=== PATIENT | female | born 1975 | race Caucasian/White ===

== ENCOUNTER 2022-12-15 14:14 | Outpatient (CLI) | payer OTHER, SELFPAY ==
[2022-12-15 16:20] LABS: Cholesterol* 218 mg/dL (90-199); HDL Cholesterol* 39 mg/dL (>=50); LDL Cholesterol Calculated 100 mg/dL (<100); Triglycerides* 394 mg/dL (40-149)
== END 2022-12-15 14:15 | disposition home or self-care (01) ==
LOC: NFLDREF 14:18
PROVIDERS: PCP Family Medicine; Visit Provider Family Medicine
DX: Z13.6 Encounter for screening for cardiovascular disorders (principal)
CPT/HCPCS: 80061

== ENCOUNTER 2023-07-11 14:02 | Emergency (ER) | payer OTHER, SELFPAY ==
[2023-07-11 14:10] VITALS: BP 150/105; PULSE 60; RESP 18; TEMP 36.2; O2SAT 97; BMI 33.9
--- NOTE | 2023-07-11 15:48 | ED.GENADULT ---
HPI - General Adult General Chief complaint: Shoulder Injury/Pain Stated complaint: Pain in both shoulders Time Seen by Provider: 07/11/23 15:20 History of Present Illness HPI narrative: This is a pleasant 47-year-old female who has a past medical history including chronic neck pain, previous cervical spine fusion surgery, history of cervical radiculopathy, fibromyalgia, GERD, hypertension, who presents to the ER today with a flare of neck pain and bilateral arm pain and numbness. She reports that she has longstanding pain in her neck that radiates to her shoulders and down her arms. She has been managing her pain over the long-term with hydrocodone, gabapentin, and ibuprofen. She last saw her primary care provider here in the [facility] in April for her refills. She notes that for the past few months she has had some worsening pain. She has moved recently and now lives in [facility]. Because of her worsening pain she has contacted he local spine surgeon in [place] and cannot get appointment to see them until November. She came here to [place] this weekend because her daughter delivered a baby boy. She is here to assist/celebrate in the of her grandson. She notes that over this weekend she has worsening pain in her neck. She also has numbness down both her arms. She has been taking her prescribed [place] and gabapentin without any relief. She has been having trouble sleeping. 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 She has other coworkers lift the cakes. Sometimes she has to lift ice. No specific heavy lifting incident or any specific injury that would have exacerbated her neck. No recent falls. Her pain is increased over baseline, she is not able to sleep, prompting her visit to the ER today. She endorses our plan to try to follow up with her regular primary care provider this week, in the [facility], since she is going to be here with her grandson. After that she will be returning home to [place] and she would like to make a plan to follow-up with a spine surgeon in [place] or possibly in [facility], if they can not get her in more quickly. She says her has told her that she probably needs another MRI and probably will need surgery again. She says, if possible, she wants to avoid more surgery. From Clinic note 04/21/23 Patient is a 47-year-old female last seen on 12/15/2022 for her annual exam who follows up for the following issues. 1. Chronic pain syndrome. This may primarily affects her neck and upper back. This is why she is on hydrocodone 5 doses per day. She is also on gabapentin for this and her fibromyalgia. She has not seen a spine surgeon for years but she recently reach out to a occupational therapy specialist in [place] where she lives much of the time. She describes increased pain in the morning and wants to know what she can do about this. She gets more right-sided spine jolts she states. Nothing new in the quality or location of her pain. She is on a stable dose of hydrocodone. 2. Abdominal pain. She gets upset stomach and abdominal pain with ibuprofen occasionally. She does not always take this with food. She is on omeprazole 20 mg daily. ... Assessment/plan: 1. Chronic pain syndrome involving her neck and upper back.? She has a known cervical disc issue with cervical stenosis.? Last back pain appointment about 3years ago.? Surgery recommended only if things are not stable.? This is an ongoing problem she would like to discuss surgery once again.? We have continued hydrocodone at a rate of 5 tablets per day for over 2 years now.? She is not asking for any early refills.? Use has been stable.? She still finds this effective and this allows her to function better.? I will continue this as long as his see her every 3 months or so.? She is waiting to hear back from spine surgery clinic in [place]. Related Data Home Medications Medication Instructions Recorded Confirmed acetaminophen 325 mg tablet mg PO Q4-6H PRN 05/25/22 04/21/23 cholecalciferol (vitamin D3) 125 125 mcg PO QDAY 05/25/22 04/21/23 mcg (5,000 unit) capsule ibuprofen 200 mg tablet mg PO .Q6h Prn 05/25/22 04/21/23 lamotrigine 100 mg tablet 100 mg PO BID 12/15/22 04/21/23 clonidine HCl 0.1 mg tablet 0.1 mg PO BID 04/21/23 04/21/23 Previous Rx's Medication Instructions Recorded amlodipine 10 mg tablet 10 mg PO QDAY #90 tabs 12/15/22 clindamycin phosphate 1 % topical 1 applic topical BID PRN cyst #60 12/15/22 gel grams cyclobenzaprine 10 mg tablet 10 mg PO ONCE PRN muscle spasm #50 12/15/22 tabs omeprazole 20 mg capsule,delayed 20 mg PO DAILY #90 caps 12/15/22 release gabapentin 300 mg capsule 900 - 1,200 mg (3 - 4 x 300 mg) PO 04/21/23 TID #900 caps omeprazole 40 mg capsule,delayed 40 mg PO QDAY #90 caps 04/21/23 release hydrocodone 5 mg-acetaminophen 325 1 - 2 tab PO TID PRN pain #150 tabs 06/28/23 mg tablet methylprednisolone 4 mg tablets in See Rx Instructions PO .COMPLEX 07/11/23 a dose pack (Medrol (Earl)) #21 ea Allergies Allergy/AdvReac Type Severity Reaction Status Date / Time codeine AdvReac Intermediate Vomiting Verified 04/21/23 14:49 Review of Systems Narrative: Negative. No fevers. No recent weight loss. [facility] Medical History (Updated 07/11/23 @ 16:23 by Jose Elias Bowen MD) History of migraine ?Z86.69 - Personal history of other diseases of the nervous system and sense organs (ICD-10) History of malignant neoplasm of bladder ?Z85.51 - Personal history of malignant neoplasm of bladder (ICD-10) Encounter for well woman exam ?Z01.419 - Encounter for gynecological examination (general) (routine) without abnormal findings (ICD-10) Carpal tunnel syndrome of right wrist ?G56.01 - Carpal tunnel syndrome, right upper limb (ICD-10) Surgical History (Updated 12/15/22 @ 14:22 by Rasta Bahena MD) History of unilateral salpingectomy (2012) ?Z90.79 - Acquired absence of other genital organ(s) (ICD-10) History of hysteroscopy ?Z98.890 - Other specified postprocedural states (ICD-10) History of dilation and curettage ?Z98.890 - Other specified postprocedural states (ICD-10) History of cholecystectomy ?Z90.49 - Acquired absence of other specified parts of digestive tract (ICD-10) History of section ?Z98.891 - History of uterine scar from previous surgery (ICD-10) History of cervical spinal arthrodesis (2014) ?Z98.1 - Arthrodesis status (ICD-10) History of carpal tunnel surgery of right wrist (05/2018) ?Z98.890 - Other specified postprocedural states (ICD-10) History of bladder surgery (2014) ?Z98.890 - Other specified postprocedural states (ICD-10) History of appendectomy ?Z90.49 - Acquired absence of other specified parts of digestive tract (ICD-10) Family History (Updated 05/18/22 @ 14:48 by Tenzin Schmidt) Brother Bipolar disorder Mother Depression Anxiety Fibromyalgia Maternal Grandmother Depression Fibromyalgia Uncle Depression Aunt Fibromyalgia Other Diabetes Social History (Updated 05/18/22 @ 14:50 by Tenzin Schmidt) Narrative: , has fianc?e, 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 Alert. Conversant. Non toxic, but uncomfortable HENT: Head: Atraumatic. Nose: Nose normal. Mouth/Throat: Oral mucosa is clear and moist. no trismus. Pharynx normal. Tonsils symmetric. No tonsillar enlargement, erythema, or exudate. Eyes: Conjunctivae normal. EOM normal. Pupils equal, round, and reactive to light. No scleral icterus. Neck: Range of motion limited by pain. She prefers to look straight ahead. She prefers neutral position. Pain is exacerbated by extension and lateral rotation. Anterior. Neck supple. No tracheal deviation present. Healed incision from previous anterior approach/cervical surgery Cardiovascular: Normal rate, regular rhythm. No gallop. No friction rub. No murmur heard. Symmetric radial artery pulses Pulmonary/Chest: Effort normal. No stridor. No respiratory distress. No wheezes. No rales. No rhonchi . No tenderness. Abdominal: Soft. Bowel sounds normal. No distension. No mass. No tenderness. No rebound. No guarding. Musculoskeletal: RUE: Normal range of motion. No tenderness. No deformity LUE: Normal range of motion. No tenderness. No deformity RLE: Normal range of motion. No edema. No tenderness. No deformity LLE: Normal range of motion. No edema. No tenderness. No deformity Lymph: No cervical adenopathy. Mental status normal. Attention normal. Alert and oriented x3. GCS 15. Memory normal. Speech fluent. Cognition normal. Cranial Nerves intact II-XII except I did not formally test gag or visual acuity. EOMI. Palate elevates symmetrically and tongue protrudes in the midline. Strength: 5/5 trapezius on the right and left 5/5 deltoid on the right and left 5/5 biceps on the right and left 5/5 triceps on the right and left 5/5 loan originator on the right and left 5/5 thumb opposition on the right and left 5/5 finger abduction on the right and left 5/5 hip flexors (L3) on the right and left 5/5 quadriceps (L4) on the right and left 5/5 tibialis anterior on the right and left 5/5 EHL (L5) on the right and left 5/5 gastrocnemius (S1) on the right and left 5/5 hamstring on the right and left Sensation: Subjective nevus on the right dorsal trapezius. Symmetric sensation bilaterally on the deltoid/C5, subjected nevus on the left C6 dermatome but normal on the right. Symmetric normal sensation bilaterally and C7. Symmetric normal sensation bilaterally 8 Ca 8. Symmetric normal sensation bilaterally in T1. Sensation intact to light touch in Both lower extremities (L4-S1). Coordination normal. Gait normal. Skin: Skin is warm and dry. No rash noted. No pallor. Normal capillary refill. Psychiatric: Normal mood. Normal affect allowing for pain. Const: Vital Signs, click to edit/add: Vital Signs - 24 hr 07/11/23 14:10 Temperature 97.1 F L Pulse Rate [Pulse Oximeter] 60 Respiratory Rate 18 Blood Pressure [Ri ght Upper Arm] 150/105 H Pulse Oximetry 97 Oxygen Delivery Me thod Room Air Course Vital Signs Vital signs: Initial Vital Signs Temperature 97.1 F L 07/11/23 14:10 Temperature Source Temporal Artery Scan 07/11/23 14:10 Pulse Rate 60 07/11/23 14:10 Respiratory Rate 18 07/11/23 14:10 Blood Pressure 150/105 H 07/11/23 14:10 Blood Pressure Mean 120 H 07/11/23 14:10 Blood Pressure Position Supine 07/11/23 14:10 Pulse Oximetry 97 07/11/23 14:10 Oxygen Delivery Method Room Air 07/11/23 14:10 Vital Signs Temperature 97.1 F L 07/11/23 14:10 Pulse Rate 60 07/11/23 14:10 Respiratory Rate 18 07/11/23 14:10 Blood Pressure 150/105 H 07/11/23 14:10 Pulse Oximetry 97 07/11/23 14:10 Oxygen Delivery Method Room Air 07/11/23 14:10 Temperature 97.1 F L 07/11/23 14:10 Pulse Rate 60 07/11/23 14:10 Respiratory Rate 18 07/11/23 14:10 Blood Pressure 150/105 H 07/11/23 14:10 Pulse Oximetry 97 07/11/23 14:10 Oxygen Delivery Method Room Air 07/11/23 14:10 Medical Decision Making MDM Narrative Medical decision making narrative: 47-year-old female with a history of chronic neck pain presents to the ER today with an exacerbation of her neck pain. It has been getting worse over the past few months which is prompted her to make an appointment to see a spine surgeon near where she lives in [place]. In particular got worse this weekend. She is in [place] this weekend visiting her family for the of her grandson. No recent fall or any specific injury to raise concern for C-spine fracture. At this point I do not think she needs x-rays or CT imaging. Clinical presentation could be concerning for worsening cervical radiculopathy or cervical stenosis. She does have asymmetric and somewhat nondermatomal numbness affecting her right shoulder, right arm, and left arm and hand. No definite weakness. She does not have any recent fever, history of active malignancy, recent weight loss or other concerns for spinal epidural abscess, epidural hematoma, spine Mets. Discussed with the patient that MRI of her neck is probably indicated in the near future because of her progressive symptoms and failing to respond to conservative management. Emergent MRI not indicated today in the absence of any clear red flag symptoms. In any case, MRIs unavailable today in the ER [place] due to the holiday weekend. Discussed with the patient. She expresses her intention to try to follow-up with her primary care provider here in the ortho clinic this week to see if they can arrange an outpatient MRI. She expresses her long-term intention to return to [place] and follow up with spine surgeons there. At this point no indication for admission or emergent transfer for immediate MR imaging at this time. Discussed return precautions and potential for worsening symptoms with the patient. In terms of pain control she is already on hydrocodone and gabapentin but those are no longer effective for managing her pain. We will try addition of Toradol with the IM dose given here in the ER. Short prescription for oxycodone provided for pain relief. She understands the need to follow-up with her primary care provider for ongoing pain management needs. Opiate precautions reviewed. She will not drive or perform dangerous activities while taking pain meds. Also discussed chronic pain and difficulty for managing pain in the setting of long-term opiate use. Patient verbalizes understanding. Discharge Plan Discharge Clinical Impression: Cervical radiculopathy, Neck pain Patient Disposition: Home, Self-Care Condition: Stable Instructions: Cervical Radiculopathy (ED), Neck Pain (ED) Additional Instructions: As we discussed, the cause for your pain is not certain but we suspect you probably have a bulging disc and a pinched nerve in your neck. You should follow-up with your doctor as soon as possible ( within 1-2 day) to arrange an MRI of your neck. If you have worsening symptoms, especially worsening numbness or weakness down your arms, return to the ER immediately to be rechecked. Continue on your regular pain medications. Use the additional pain medications if needed. Be careful with pain killers because they are addictive and can cause other side effects such as drowsiness, constipation. Do not drive a car for 6 hours after you have taken pain killers. Please start on the steroid anti-inflammatory tomorrow. Prescriptions: New methylprednisolone [Medrol (Earl)] 4 mg tablets,dose pack See Rx Instructions .ROUTE .COMPLEX Qty: 21 0RF Rx Instructions: orally per package directions No Action ibuprofen 200 mg tablet PO .Q6h Prn acetaminophen 325 mg tablet PO Q4-6H PRN Rx Instructions: NO MORE THAN 4000 MG/DAY cholecalciferol (vitamin D3) 125 mcg (5,000 unit) capsule 125 mcg PO QDAY clonidine HCl 0.1 mg tablet 0.1 mg PO BID gabapentin 300 mg capsule 900 - 1,200 mg PO TID Qty: 900 2RF Rx Instructions: Take 900 mg in AM and afternoon, 1200 mg at bedtime. omeprazole 40 mg capsule,delayed release(DR/EC) 40 mg PO QDAY Qty: 90 3RF lamotrigine 100 mg tablet 100 mg PO BID amlodipine 10 mg tablet 10 mg PO QDAY Qty: 90 3RF clindamycin phosphate 1 % gel 1 applic topical BID PRN (Reason: cyst) Qty: 60 12RF cyclobenzaprine 10 mg tablet 10 mg PO ONCE PRN (Reason: muscle spasm) Qty: 50 3RF omeprazole 20 mg capsule,delayed release(DR/EC) 20 mg PO DAILY Qty: 90 3RF hydrocodone-acetaminophen 5-325 mg tablet 1 - 2 tab PO TID PRN (Reason: pain) Qty: 150 0RF Rx Instructions: Maximum 5 tab/ 24h Follow Up/Referrals: Rasta Bahena MD [Primary Care Provider] - (In ER on 07/11 for neck pain/bilateral arm symptoms. Suspect cervical radiculopathy. Needs clinic follow-up for re-evaluation, possible MRI.) Stand Alone Forms: [facility] Info Instructions
[2023-07-11] MEDS: OxyCODONE/APAP 5-325 TABLET 2 TAB PO (16:29)
[2023-07-11] MEDS: KETOROLAC 30 MG/ML inj IM (16:30)
[2023-07-11] MEDS: dexAMETHasone 4 MG TABLET PO (16:30)
== END 2023-07-11 16:51 | disposition home or self-care (01) ==
LOC: ED 16:47
PROVIDERS: Emergency Provider Emergency Medicine; PCP Family Medicine
DX: M54.12 Radiculopathy, cervical region (principal)
CPT/HCPCS: 96372; 99283; 99284; A9270; J1885

== ENCOUNTER 2024-11-17 21:19 | Emergency (ER) | payer SELFPAY ==
--- OUTSIDE RECORDS SUMMARY | 2024-11-17 21:22 | XMS_ITS | Summary of Care ---
Author Organization [facility] Address [address] [place] [address] Care Team Providers Care Life Skills Coordinator Volunteer Name Role Phone Pcp, No Primary Care Provider Unavailabl e Mahnaz Montejo MD Unavailable Reason for Visit * Reason Comments Shoulder Pain Encounter Details Date Type Department Care Team (Late st Contact Info) Description 11/12/2024 7:26 PM SURVEY WORKER - 11/12/2024 9:49 PM SURVEY WORKER Emergency [facility] Emergency Services [address] [place] [address] Janes Gillespie MD [address], [place] [id number] Rehana Guzmán RN Gaskill, Lynn M, RN Chronic left shoulder pain (Primary Dx) Discharge Disposition: Home or Self Care Allergies No known active allergiesdocumented as of this encounter (statuses as of 11/13/2024) Medications Medication Sig Dispensed Refills Start Date End Date Status clindamycin (CLINDAGEL) 1 % gel clindamycin 1 % topical gel Active gabapentin (NEURONTIN) 300 MG capsule gabapentin 300 mg capsule Active HYDROcodone-acetam inophen (NORCO) 5-325 MG per tablet TAKE 1 TO 2 TABLETS BY MOUTH THREE TIMES DAILY NEEDED FOR PAIN. MAXIMUM 5 TABLET / 24 HOUR 09/19/2023 Active doxycycline monohydrate (ADOXA) 100 MG tablet Take 1 tablet by mouth in the morning and 1 tablet in the evening. 20 tablet 10/09/2023 Active Additional Information Patient not taking.Reported on 01/20/2024 Probiotic Product (Florajen3) capsule Take 1 capsule by mouth in the morning and 1 capsule in the evening. 30 capsule 10/09/2023 Active Additional Information Patient not taking.Reported on 01/20/2024 lidocaine (LIDOCARE) 4 % patch Place 1 patch onto the skin every 24 hours. 10 patch 02/03/2024 Active naproxen (NAPROSYN) 500 MG tablet Take 1 tablet by mouth in the morning and 1 tablet in the evening. Take with meals. 10 tablet 03/26/2024 Active Additional Information Patient not taking.Reported on 04/04/2024 cyclobenzaprine (FLEXERIL) 10 MG tablet Take 1 tablet by mouth 3 times daily as needed for Muscle spasms. 15 tablet 03/26/2024 Active omeprazole (PriLOSEC) 40 MG capsule Take 40 mg by mouth daily. Active cyclobenzaprine (FLEXERIL) 5 MG tablet TAKE 1 TABLET BY MOUTH EVERY DAY AT BEDTIME NEEDED FOR MUSCLE SPASM 11/10/2023 Active sertraline (ZOLOFT) 50 MG tablet Take 1 tablet by mouth daily. 90 tablet 2 05/01/2024 01/26/2025 Active predniSONE (DELTASONE) 20 MG tablet Take 2 tablets by mouth daily. 10 tablet 08/22/2024 Active albuterol 108 (90 Base) MCG/ACT inhaler Inhale 2 puffs into the lungs every 4 hours as needed for Wheezing. 8.5 g 08/22/2024 Active Hospital, Clinic, or Other Facility Administered Medication Ordered Dose Route Frequency Start Date End Date Status levonorgestrel (MIRENA) (52 MG) 20 MCG/DAY intrauterine device 52 mgIndications:Encounter for insertion of Mirena IUD 52 mg IU EVERY 8 YEARS 02/14/2024 Active documented as of this encounter (statuses as of 11/13/2024) Active Problems Problem Noted Date Diagnosed Date Presence of intrauterine contraceptive device (I UD) 02/26/2024 Overview (02/26/2024): Mirena IUD (Lot: [id number]; Exp: ) inserted 02/14/2024; due for removal by 02/14/2032 History of bladder cancer 02/26/2024 PMDD (premenstrual dysphoric disorder) Overview (02/26/2024): sertraline documented as of this encounter (statuses as of 11/13/2024) Social History Tobacco Use Types Packs/Day Years Used Date Smoking Tobacco: Every Day Cigarettes Smokeless Tobacco: Never Alcohol Use Standard Drinks/Week Comments Yes 0 (1 standard drink = 0.6 oz pur e alcohol) social Inadequate Housing Answer Date Recorded Social Determinants: Housing (Overall Score Help er) 0 09/25/2021 Interpersonal Safety Answer Date Record ed How often does anyone, [place]dom[place] mat[place] family and friends, physically hurt you? Never 11/12/2024 How often does anyone, [place]dom[place] family and friends, insult or talk down to you? Never 11/12/2024 How often does anyone, [place]dom[place] mat[place] family and friends, threaten you with harm? Never 11/12/2024 How often does anyone, [place]dom[place] mat[place] family and friends, scream or curse at you? Never 11/12/2024 Sexually Active Control Partners Comments Yes Male Sex and Gender Information Value Date Recorded Sex Assigned at Not on file Gender Identity Not on file Sexual Orientation Not on file Job Start Date Occupation Industry Not on file Not on file Not on file documented as of this encounter Last Filed Vital Signs Vital Sign Reading Time Taken Comments Blood Pressure 149/91 11/12/2024 9:43 PM SURVEY WORKER Pulse 68 11/12/2024 9:43 PM SURVEY WORKER Temperature 36.2 C (97.1 F) 11/12/2024 7:29 PM SURVEY WORKER Respiratory Rate 14 11/12/2024 9:43 PM SURVEY WORKER Oxygen Saturation 98% 11/12/2024 9:43 PM SURVEY WORKER Inhaled Oxygen Concentration - - Weight 86 kg (189 lb 9.5 oz) 11/12/2024 7:29 PM SURVEY WORKER Height 167.6 cm (5' 6) 11/12/2024 7:29 PM SURVEY WORKER Body Mass Index 30.6 11/12/2024 7:29 PM SURVEY WORKER documented in this encounter Discharge Instructions * Discharge Instructions* Janes Gillespie MD - 11/12/2024 9:40 PM SURVEY WORKER The x-ray of your left shoulder shows some signs of arthritis and calcium buildup which is likely causing some of your pain. Please follow-up with orthopedic surgery for further evaluation. Take yourmedications as prescribed. Orthopedic surgery follow-up information was provided in the discharge pa perwork. If you develop chest pain or difficulty breathing please return to the emergency department. EY WORKER * Attachments The following attachments cannot be sent through Care Everywhere. * Arthralgia (Chinese) * Shoulder Pain, Uncertain Cause (Chinese) documented in this encounter ED Notes * Rehana Guzmán RN - 11/12/2024 7:29 PM CST Known calcium build up in shoulder. Was doing someone hair today and twisted and pain shot up Took vicodin and motrin at 1500 no relief EY WORKER documented in this encounter Plan of Treatment Pending Results Name Type Priority Associated Diagnoses Date /Time Electrocardiogram 12-Lead EKG STAT 11/12/2024 8:26 PM SURVEY WORKER Health Maintenance Due Date Last Done Comments COVID-19 Vaccine (#1) 1980 Pneumococcal Vaccine 0-64 (1 of 2 - PCV) 1981 Depression Screening 1987 Hepatitis B Vaccine (1 of 3 - 19+ 3-dose series) [address]ening [address] Colonography 2020 Cologuard 2020 Colonoscopy 2020 Colorectal Cancer Screen 2020 Fecal Occult Blood 2020 Sigmoidoscopy 2020 Influenza Vaccine (#1) 2024 DTaP/Tdap/Td Vaccine (2 - Td or Tdap) 08/19/2025 08/19/2015 Cervical Cancer Screening 01/19/2029 HPV/Cotest 01/19/2029 01/20/2024 Pap Smear 01/19/2029 01/20/2024 HPV Vaccine Aged Out No longer eligi ble based on patient's age to complete this topic Meningococcal Vaccine Aged Out No sylvia blake eligible based on patient's age to complete this topic documented as of this encounter Medical Devices Implanted Type Area Mechanical Design Technician Device Identifier Shelf Expiration Date Model / Serial / Lot Contraceptive -02/14/2024 Implanted:Qty : 1 on 02/14/2024 by Edie Mann MD Contraceptive Cervix 04/06/2026 [id number] / / [id number] Description:Mirena IUD documented as of this encounter Procedures Procedure Name Priority Date/Time Associated Diagnosis Comments XR SHOULDER 3 VIEWS LEFT STAT 025 8:35 PM SURVEY WORKER ELECTROCARDIOGRAM 12-LEAD STAT 2024 8:26 PM SURVEY WORKER documented in this encounter Results * XR SHOULDER 3 VIEWS LEFT (11/12/2024 8:35 PM SURVEY WORKER) Anatomical Region Laterality Modality Shoulder Left Digital Radiogra phy 11/12/2024 9:11 PM SURVEY WORKER Impressions 11/12/2024 9:16 PM SURVEY WORKER IMPRESSION: 1. Degenerative change of the greater tuberosity with a subtle degree of calcium deposition likely reflects rotator cuff pathology with mild calcific tendinitis. 2. 0.9 cm calcification overlying the proximal humeral diaphysis likely reflects a calcified body within the biceps tendon sheath. 3. No acute osseous injury seen. Electronically Signed by: Janes Martin MD Signed on: 11/12/2024 9:16 PM Created on Workstation ID: [id number] Signed on Workstation ID: [id number] Narrative 11/12/2024 9:16 PM SURVEY WORKER EXAM: XR SHOULDER 3 VIEWS LEFT DATE OF EXAM: 11/12/2024 8:17 PM. TECHNIQUE: AP internal, AP external, scapular Y view radiographs were obtained CLINICAL HISTORY: left shoulder pain. COMPARISON: None available. FINDINGS: The osseous structures are intact. No evidence of dislocation. Bone mineralization is within normal limits. There is abnormal smoothness of the greater tuberosity with osseous cystic change and a mild degree of overlying calcific deposition. A 0.9 cm calcification can be seen to overlie the proximal humeral diaphysis. The soft tissues are unremarkable. Partial visualization of the thorax is normal. Procedure Note Janes Martin MD - 11/12/2024 EXAM: XR SHOULDER 3 VIEWS LEFT DATE OF EXAM: 11/12/2024 8:17 PM. TECHNIQUE: AP internal, AP external, scapular Y view radiographs were obtained CLINICAL HISTORY: left shoulder pain. COMPARISON: None available. FINDINGS: The osseous structures are intact. No evidence of dislocation. Bone mineralization is within normal limits. There is abnormal smoothness ofthe greater tuberosity with osseous cystic change and a mild degree of overlying calcific deposition. A 0.9 cm calcification can be seen to overlie the proximal humeral diaphysis. The soft tissues areunremarkable. Partial visualization of the thorax is normal. IMPRESSION: 1. Degenerative change of the greater tuberosity with a subtle degreeof calcium deposition likely reflects rotator cuff pathology with mild calcific tendinitis. 2. 0.9 cm calcification overlying the proximal humeral diaphysis likely reflects a calcified body within the biceps tendon sheath. 3. No acute osseous injury seen. Electronically Signed by: Janes Martin MD Signed on: 11/12/2024 9:16 PM Created on Workstation ID: [id number] Signed on Workstation ID: [id number] Janes Gillespie MD IMG XR PROCEDURES documented in this encounter Visit Diagnoses Diagnosis Chronic left shoulder pain- Primary Pain in joint, shoulder region documented in this encounter Administered Medications Inactive Administered Medications - up to 1 most recent administrations Medication Order MAR Action Action Date Dose Rate Site ketorolac (TORADOL) injection 15 mg 15 mg ONCE, Intramuscular, On Tue11/12/24 at 2103, For 1 dose, Do not administer with other NSAIDs. If IV, give over at least 15 seconds. Ketorolac therapy maximum allowed duration: 5 days. If an IV and an oral medication are ordered PRN for the same pain severity, administer IV only if patient is NPO/if oral is not tolerated. * Protect from light * Given 11/12/2024 9:04 PM SURVEY WORKER 15 mg Delto id, Left orphenadrine (NORFLEX) injection 60 mg 60 mg ONCE, Intramuscular, On Tue11/12/24 at 2011, For 1 dose Given 11/12/2024 8:17 PM SURVEY WORKER 60 mg Delto id, Right oxyCODONE (IMM REL) (ROXICODONE) tablet 5 mg 5 mg ONCE, Oral, On Tue11/12/24 at 2011, For 1 dose, IMMEDIATE RELEASE Given 11/12/2024 8:17 PM SURVEY WORKER 5 mg documented in this encounter Active and Recently Administered Medications Times are shown in SURVEY WORKER. Scheduled Medication Order 11/10/2024 11/11/2024 11/12/2024 ketorolac (TORADOL) injection 15 mg (COMPLETED) 15 mg ONCE, Intramuscular, On Tue11/12/24 at 2103, For 1 dose, Do not administer with other NSAIDs. If IV, give over at least 15 seconds. Ketorolac therapy maximum allowed duration: 5 days. If an IV and an oral medication are ordered PRN for the same pain severity, administer IV only if patient is NPO/if oral is not tolerated. * Protect from light * 2103 (Given - Provid er: Rehana Guzmán RN) orphenadrine (NORFLEX) injection 60 mg (COMPLETED) 60 mg ONCE, Intramuscular, On Tue11/12/24 at 2011, For 1 dose 2016 (Given - Provid er: Rehana Guzmán RN) oxyCODONE (IMM REL) (ROXICODONE) tablet 5 mg (COMPLETED) 5 mg ONCE, Oral, On Tue11/12/24 at 2011, For 1 dose, IMMEDIATE RELEASE 2016 (Given - Provid er: Rehana Guzmán RN) documented in this encounter Care Teams Life Skills Coordinator Volunteer Relationship Specialty Start Date End Date Pcp, No PCP - General 09/14/23 Mahnaz Montejo MD [address] [place] [address] Orthopaedic Surgery Sports Medicine 04/10/24 documented as of this encounter
--- OUTSIDE RECORDS SUMMARY | 2024-11-17 21:22 | XMS_ITS | Referral Summary ---
Author Organization [facility] Address [address] [place] [address] Care Team Providers Care Physical Medicine Physician Name Role Phone Pcp, No Primary Care Provider Unavailabl e Mahnaz Montejo MD Unavailable Encounters Date Type Department Care Team Description 11/12/2024 Travel 11/12/2024 7:26 PM FITTER HELPER - 11/12/2024 9:49 PM FITTER HELPER Emergency [facility] Emergency Services [address] [place] [address] Janes Gillespie MD Kerslake, Jessica L, RN Gaskill, Lynn M, RN Chronic left shoulder pain (Primary Dx) Discharge Disposition: Home or Self Care 09/19/2024 Telephone [facility] Emergency Services [address] [place] [address] Ernie Adan MD Referral 08/22/2024 Travel 08/22/2024 5:11 PM CDT - 08/22/2024 6:37 PM CDT Emergency [facility] Emergency Services [address] [place] [address] Herman Billingsley DO Baetz, Sydnie, RN Bronchitis (Primary Dx) Discharge Disposition: Home or Self Care from Last 3 Months Allergies No known active allergies Medications Medication Sig Dispensed Refills Start Date [...] mg IU EVERY 8 YEARS 02/14/2024 Active Active Problems Problem Noted Date Diagnosed Date Presence of intrauterine contraceptive device (I UD) 02/26/2024 Overview (02/26/2024): Mirena IUD (Lot: [id number]; Exp: ) inserted 02/14/2024; due for removal by 02/14/2032 History of bladder cancer 02/26/2024 PMDD (premenstrual dysphoric disorder) Overview (02/26/2024): sertraline Social History Tobacco Use Types Packs/Day Years Used Date Smoking Tobacco: Every Day Cigarettes Smokeless Tobacco: Never Tobacco Cessation:Ready to Q uit: Not Asked; Counseling Given: Not Answered Alcohol Use Standard Drinks/Week Comments Yes 0 [...] file Not on file Not on file Last Filed Vital Signs Vital Sign Reading Time Taken Comments Blood Pressure 149/91 11/12/2024 9:43 PM FITTER HELPER Pulse 68 11/12/2024 9:43 PM FITTER HELPER Temperature 36.2 C (97.1 F) 11/12/2024 7:29 PM FITTER HELPER Respiratory Rate 14 11/12/2024 9:43 PM FITTER HELPER Oxygen Saturation 98% 11/12/2024 9:43 PM FITTER HELPER Inhaled Oxygen Concentration - - Weight 86 kg (189 lb 9.5 oz) 11/12/2024 7:29 PM FITTER HELPER Height 167.6 cm (5' 6) 11/12/2024 7:29 PM FITTER HELPER Body Mass Index 30.6 11/12/2024 7:29 PM FITTER HELPER Plan of Treatment Not on file Medical Devices Implanted Type Area Orthopedic Assistant Device Identifier Shelf Expiration Date Model / Serial / Lot Contraceptive -02/14/2024 Implanted:Qty : 1 on 02/14/2024 by Edie Mann MD Contraceptive Cervix 04/06/2026 [id number] / / [id number] Description:Mirena IUD Procedures Procedure Name Priority Date/Time Associated Diagnosis Comments XR SHOULDER 3 VIEWS LEFT STAT 025 8:35 PM FITTER HELPER ELECTROCARDIOGRAM 12-LEAD STAT 2024 8:26 PM FITTER HELPER XR CHEST PA AND LATERAL 2 VIEWS STAT 08/22/2024 5:44 PM CDT COVID/FLU/RSV PANEL STAT 08/22/2024 5 :22 PM CDT PAP ORDER Routine 01/20/2024 3:30 PM CDT Screening for malignant neoplasm of the cervix HPV, HIGH RISK Routine 01/20/2024 3:30 PM CDT Screening for malignant neoplasm of the cervix from Last 3 Months or Most Recently Relevant to Health Maintenance Results * XR SHOULDER 3 VIEWS LEFT (11/12/2024 8:35 PM FITTER HELPER) Anatomical Region Laterality Modality Shoulder Left Digital Radiogra phy 11/12/2024 9:11 PM FITTER HELPER Impressions 11/12/2024 9:16 PM FITTER HELPER IMPRESSION: 1. Degenerative change of the greater [...] 11/12/2024 9:16 PM Created on Workstation ID: [id number] Signed on Workstation ID: [id number] Narrative 11/12/2024 9:16 PM FITTER HELPER EXAM: XR SHOULDER 3 VIEWS LEFT DATE [...] 11/12/2024 9:16 PM Created on Workstation ID: [id number] Signed on Workstation ID: [id number] Janes Gillespie MD IMG XR PROCEDURES * Electrocardiogram 12-Lead (11/12/2024 8:26 PM FITTER HELPER) Systolic Blood Pressure 187 MUSE Diastolic Blood Pressure 111 MUSE Ventricular Rate EKG/Min (BPM) 78 MUSE Atrial Rate (BPM) 78 MUSE SD-Interval (MSEC) 156 MUSE QRS-Interval (MSEC) 70 MUSE QT-Interval (MSEC) 376 MUSE QTc 428 MUSE P [place] (Degrees) 65 MUSE R [place] (Degrees) 66 MUSE T [place] (Degrees) 72 MUSE REPORT TEXT Normal sinus rhythm Normal ECG No previous ECGs available Confirmed by VALARIE FARIAS, HELEN ([id number]) on 11/13/2024 12:03:27 PM MUSE 11/12/2024 8:26 PM FITTER HELPER Janes Gillespie MD ECG ORDERABLES MUSE * XR CHEST PA AND LATERAL 2 VIEWS (08/22/2024 5:44 PM CDT) Anatomical Region Laterality Modality Chest/Thorax N/A Digital Radiogra phy 08/22/2024 5:58 PM CDT Impressions 08/22/2024 5:58 PM CDT IMPRESSION: No acute cardiopulmonary disease. Electronically Signed by: Sivan Craig MD Signed on: 08/22/2024 5:58 PM Created on Workstation ID: [id number] Signed on Workstation ID: [id number] Narrative 08/22/2024 5:58 PM CDT XR CHEST PA AND LATERAL 2 VIEWS CLINICAL INDICATION: cough and sob. TECHNIQUE: Frontal and lateral views of the chest were obtained on 08/22/2024 5:58 PM. COMPARISON: Chest radiograph on February 02, 2024. FINDINGS: The cardiomediastinal silhouette appears to be within normal limits. The trachea is midline. The hilar contours are normal. The pulmonary vasculature is normally distributed. The lungs and pleural spaces are clear. Cervical hardware Procedure Note Sivan Craig MD - 08/22/2024 XR CHEST PA AND LATERAL 2 VIEWS CLINICAL INDICATION: cough and sob. TECHNIQUE: Frontal and lateral views of the chest were obtained on 08/22/2024 5:58 PM. COMPARISON: Chest radiograph on February 02, 2024. FINDINGS: The cardiomediastinal silhouette appears to be within normal limits. The trachea is midline. The hilar contours are normal. The pulmonary vasculature is normally distributed. The lungs and pleural spaces are clear. Cervical hardware IMPRESSION: No acute cardiopulmonary disease. Electronically Signed by: Sivan Craig MD Signed on: 08/22/2024 5:58 PM Created on Workstation ID: [id number] Signed on Workstation ID: [id number] Herman Bashor DO IMG XR PROCEDURES * COVID/Flu/RSV panel (08/22/2024 5:22 PM CDT) Rapid SARS-COV-2 by PCR Not Detected Not Detected / Detected / Presumptive Positive / Inhibitors present [facility] 08/22/2024 6:02 PM CDT [facility] Influenza A by PCR Not Detected Not Detected [place] [id number] 08/22/2024 6:02 PM CDT [facility] Influenza B by PCR Not Detected Not Detected [place] [id number] 08/22/2024 6:02 PM T [facility] RSV BY PCR Not Detected Not Detected [facility] 08/22/2024 6:02 PM CDT [facility] Isolation Guidelines [place] [id number] 08/22/2024 6:02 PM T [facility] Comment: Do not use this test result as the sole decision-maker for discontinuation of isolation. Clinical evaluation should be considered for other respiratory illness requiring transmission-based isolation. - No fever (<99.0 F/37.2 C) for at least 24 hours without the use of fever- reducing medications AND - Respiratory symptoms have improved or resolved (e.g. cough, shortness of breath) AND - COVID-19 negative test See COVID-19 Deisolation Resource Guide Procedural Comment [place] [id number] 08/22/2024 6:02 PM CDT [facility] Comment: SARS-COV-2 nucleic acid has not been detected indicating the absence of COVID- 19. This test was performed using the [employer] Xpert Xpress SARS-CoV-2/Flu/RSV RT-PCR test that has been given Emergency Use Authorization (EUA) by the [place] Food and Drug Administration (FDA). These tests are considered definitive and do not need to be confirmed by another method. Swab MID-TURBINATE NASAL SWAB / Unknown 08/22/2024 5:22 PM CDT 08/22/2024 5:24 PM CDT Herman Billingsley DO [facility] LAB BLOOD ORDERA BLES [address] [address] * Pap Test (01/20/2024 3:30 PM CDT) Case Report Gynecological Cytology Case: [id number] Authorizing Provider: Edie Mann MD Collected: 01/20/2024 1530 Ordering Location: [facility] Received: 01/20/2024 1613 Gynecology [place] [address] First Screen: Danyelle Reyna, CT Pathologist: Christy Esqueda MD Specimen: ThinPrep Pap Test, Cervix 01/25/2024 1:53 PM CDT [facility] Interpretation Negative for intraepithelial lesion or malignancy. 01/25/2024 1:53 PM CDT [facility] Specimen Adequacy Satisfactory for evaluation, endocervical/underwood sformation zone component present. 01/25/2024 1:53 PM CDT [facility] Other Findings Hyperkeratosis. Case reviewed by the pathologist. 01/25/2024 1:53 PM CDT [facility] Clinical Information 01/25/2024 1:53 PM CDT [facility] Pap Educational Note The Pap test is a screening test with a well-recognized false negative rate. The best means available to lower the false negative rate and to detect early cervical lesions is a Pap test at regular intervals. All ThinPrep Paps will be reviewed with the aid of the ThinPrep Imaging System, unless otherwise specified. For assistance in current consensus management guidelines, refer to the [place] Society for Colposcopy and Cervical Pathology website at www.asccp.org First Screen performed at: [facility] [address] [facility] [address] 01/25/2024 1:53 PM CDT [facility] [place] CERVIX UTERI STRUCTURE / Unknown 01/20/2024 3:30 PM CDT 01/20/2024 4:13 PM CDT Edie Mann MD BKR LAB CYTOLOGY O RDERABLES [facility] [address] [place], [place] [address] * HPV, High Risk (01/20/2024 3:30 PM CDT) High Risk HPV Negative Negative [facility] 01/25/2024 1:53 PM CDT [facility] Disclaimer The APTIMA HPV Assay is an in vitro nucleic acid amplification test for the qualitative detection of E6/E7 viral messenger RNA (mRNA) from 14 high-risk types of human papillomavirus (HPV) in cervical specimens. The high-risk HPV types detected by the assay include: 16, 18, 31, 33, 35, 39, 45, 51, 52, 56, 58, 59, 66, and 68. The Aptima HPV Assay does not discriminate between the 14 high-risk types. Cervical specimens in the Thin Prep Pap Test vials containing PreservCyt Solution and collected with broom-type or cytobrush/spatula collection devices are FDA approved for this assay using the [employer] RadioHER System. The Aptima High Risk HPV assay is not FDA approved for use as a stand-alone test for primary HPV screening. It is approved for use only in conjunction with cytology. The Aptima High Risk HPV assay is not intended for use as a screening device for women under 30 with normal cervical cytology or replacement of regular cervical cytology screening. The Aptima High Risk HPV assay is not FDA approved for testing on vaginal and/or rectal specimens. [employer] has internally validated these specimen sources. The expected normal reference range is negative. [facility] 01/25/2024 1:53 PM CDT [facility] [place] CERVIX UTERI STRUCTURE / Unknown 01/20/2024 3:30 PM CDT 01/22/2024 12:36 PM CDT Edie Mann MD BKR LAB MOLEC DIAG N ORD [facility] [address] [place] [address], [facility] from Last 3 Months or Most Recently Relevant to Health Maintenance Care Teams Physical Medicine Physician Relationship Specialty Start Date End Date Pcp, No PCP - General 09/14/23 Mahnaz Montejo MD [address] [place] [address] Orthopaedic Surgery Sports Medicine 04/10/24
--- OUTSIDE RECORDS SUMMARY | 2024-11-17 21:22 | XMS_ITS | Clinical Summary ---
Author Organization [facility] Address [address] [place] [id number] Care Team Providers Care Decaler Name Role Phone Pcp, No Primary Care Provider Mahnaz Beckman MD Unavailable Allergies No known active allergies Medications Medication [...] UD) 02/26/2024 Overview (02/26/2024): Mirena IUD (Lot: [id number]; Exp: ) inserted 02/14/2024; due for removal by 02/14/2032 History of bladder cancer 02/26/2024 PMDD (premenstrual dysphoric disorder) Overview (02/26/2024): sertraline Encounters Date Type Department Care Team Description 11/12/2024 7:26 PM CHIEF BUSINESS DEVELOPMENT OFFICER - 11/12/2024 9:49 PM CHIEF BUSINESS DEVELOPMENT OFFICER Emergency [facility] Emergency Services [address] [place] [address] Janes Gillespie MD Kerslake, Jessica L, RN My Castillo, final inspector shuttle left shoulder pain (Primary Dx) Discharge Disposition: Home or Self Care 11/12/2024 Travel 09/19/2024 Telephone [facility] Emergency Services [address] [place] [address] Ernie Adan MD Referral 08/22/2024 5:11 PM CDT - 08/22/2024 6:37 PM CDT Emergency [facility] Emergency Services [address] [place] [address] Herman Billingsley DO Baetz, Sydnie, RN Bronchitis (Primary Dx) Discharge Disposition: Home or Self Care 08/22/2024 Travel from Last 3 Months Surgical History Surgery Date Site/Laterality Comments SECTION, LOW TRANSVERSE CHOLECYSTECTOMY SPINE SURGERY PROCEDURE UNLISTED TREAT ECTOPIC PREG,RMV TUBE/OVARY 2009 CARPAL TUNNEL RELEASE Bilateral D AND C 11/07/2009 - 11/06/2010 NECK/CHEST PROCEDURE UNLISTED 11/07/2014 - 11/06/2015 neck surgery PILONIDAL CYST DRAINAGE ? drainage or other BLADDER SURGERY tumor removed Medical History Medical History Date Comments PCOS (polycystic ovarian syndrome) depression Anxiety Hx of migraines required hospita lization in past History of bladder cancer 02/26/2024 Family History Medical History Relation Comments Diabetes Father Heart disease Father Relation Status Comments Father Alive Mother Alive Social History Tobacco Use Types Packs/Day Years [...] file Not on file Not on file Obstetrics History Para Term AB IAB SAB Ectopic Molar Multiple Living Live Births 2 1 1 1 1 1 1 Date Outcome GA Total Labor Labor/2nd/3rd Weight Sex Type Anes PTL Joan A1 A5 Name Clin 1998 Term F CS-LTra nv Living 2016 Ectopic ECTOPIC Last Filed Vital Signs Vital Sign Reading Time Taken Comments Blood Pressure 149/91 11/12/2024 9:43 PM CHIEF BUSINESS DEVELOPMENT OFFICER Pulse 68 11/12/2024 9:43 PM CHIEF BUSINESS DEVELOPMENT OFFICER Temperature 36.2 C (97.1 F) 11/12/2024 7:29 PM CHIEF BUSINESS DEVELOPMENT OFFICER Respiratory Rate 14 11/12/2024 9:43 PM CHIEF BUSINESS DEVELOPMENT OFFICER Oxygen Saturation 98% 11/12/2024 9:43 PM CHIEF BUSINESS DEVELOPMENT OFFICER Inhaled Oxygen Concentration - - Weight 86 kg (189 lb 9.5 oz) 11/12/2024 7:29 PM CHIEF BUSINESS DEVELOPMENT OFFICER Height 167.6 cm (5' 6) 11/12/2024 7:29 PM CHIEF BUSINESS DEVELOPMENT OFFICER Body Mass Index 30.6 11/12/2024 7:29 PM CHIEF BUSINESS DEVELOPMENT OFFICER Plan of Treatment Health Maintenance Due Date Last Done Comments [...] on patient's age to complete this topic Medical Devices Implanted Type Area Sustainability Project Manager Device Identifier Shelf Expiration Date Model / Serial / Lot Contraceptive -02/14/2024 Implanted:Qty : 1 on 02/14/2024 by Edie Mann MD Contraceptive Cervix 04/06/2026 [id number] Description:Mirena IUD Procedures Procedure Name Priority Date/Time Associated Diagnosis Comments XR SHOULDER 3 VIEWS LEFT STAT 025 8:35 PM CHIEF BUSINESS DEVELOPMENT OFFICER ELECTROCARDIOGRAM 12-LEAD STAT 2024 8:26 PM CHIEF BUSINESS DEVELOPMENT OFFICER XR CHEST PA AND LATERAL 2 VIEWS [...] SHOULDER 3 VIEWS LEFT (11/12/2024 8:35 PM CHIEF BUSINESS DEVELOPMENT OFFICER) Anatomical Region Laterality Modality Shoulder Left Digital Radiogra phy 11/12/2024 9:11 PM CHIEF BUSINESS DEVELOPMENT OFFICER Impressions 11/12/2024 9:16 PM CHIEF BUSINESS DEVELOPMENT OFFICER IMPRESSION: 1. Degenerative change of the greater [...] 11/12/2024 9:16 PM Created on Workstation ID: [id number] Signed on Workstation ID: [id number] Narrative 11/12/2024 9:16 PM CHIEF BUSINESS DEVELOPMENT OFFICER EXAM: XR SHOULDER 3 VIEWS LEFT DATE [...] 11/12/2024 9:16 PM Created on Workstation ID: [id number] Signed on Workstation ID: [id number] Janes Gillespie MD IMG XR PROCEDURES * Electrocardiogram 12-Lead (11/12/2024 8:26 PM CHIEF BUSINESS DEVELOPMENT OFFICER) Systolic Blood Pressure 187 MUSE Diastolic Blood Pressure 111 MUSE Ventricular Rate EKG/Min (BPM) 78 MUSE Atrial Rate (BPM) 78 MUSE MA-Interval (MSEC) 156 MUSE QRS-Interval (MSEC) 70 MUSE QT-Interval (MSEC) 376 MUSE QTc 428 MUSE P [place] (Degrees) 65 MUSE R [place] (Degrees) 66 MUSE T [place] (Degrees) 72 MUSE REPORT TEXT Normal sinus rhythm Normal ECG No previous ECGs available Confirmed by VALARIE FARIAS, HELEN ([id number]) on 11/13/2024 12:03:27 PM MUSE 11/12/2024 8:26 PM CHIEF BUSINESS DEVELOPMENT OFFICER Janes Gillespie MD ECG ORDERABLES MUSE * XR CHEST PA AND LATERAL 2 VIEWS (08/22/2024 5:44 PM CDT) Anatomical Region Laterality Modality Chest/Thorax N/A Digital Radiogra phy 08/22/2024 5:58 PM CDT Impressions 08/22/2024 5:58 PM CDT IMPRESSION: No acute cardiopulmonary disease. Electronically Signed by: Sivan Craig MD Signed on: 08/22/2024 5:58 PM Created on Workstation ID: [id number] Signed on Workstation ID: [id number] Narrative 08/22/2024 5:58 PM CDT XR CHEST [...] 08/22/2024 5:58 PM Created on Workstation ID: [id number] Signed on Workstation ID: [id number] Herman Billingsley DO IMG XR PROCEDURES * COVID/Flu/RSV panel (08/22/2024 5:22 PM CDT) Rapid SARS-COV-2 by PCR Not Detected Not Detected / Detected / Presumptive Positive / Inhibitors present FINGAL - GXP1 08/22/2024 6:02 PM [facility] Influenza A by PCR Not Detected Not Detected [place] [address] 08/22/2024 6:02 PM T [facility] Influenza B by PCR Not Detected Not Detected [place] [address] 08/22/2024 6:02 PM T [facility] RSV BY PCR Not Detected Not Detected [place] [address] 08/22/2024 6:02 PM [facility] Isolation Guidelines [place] [address] 08/22/2024 6:02 PM [facility] Comment: Do not use this test result [...] See COVID-19 Deisolation Resource Guide Procedural Comment [place] [address] 08/22/2024 6:02 PM [facility] Comment: SARS-COV-2 nucleic acid has not been detected indicating the absence of COVID- 19. This test was performed using the [employer] Xpert Xpress SARS-CoV-2/Flu/RSV RT-PCR test that has been given Emergency Use Authorization (EUA) by the [place] Food and Drug Administration (FDA). These tests are considered definitive and do not need to be confirmed by another method. Swab MID-TURBINATE NASAL SWAB / Unknown 08/22/2024 5:22 PM CDT 08/22/2024 5:24 PM CDT Herman Billingsley DO BKR LAB BLOOD ORDERA BLES [facility] [address] [place] [id number] * Pap Test (01/20/2024 3:30 PM CDT) Case Report Gynecological Cytology Case: [id number] Authorizing Provider: Edie Mann MD Collected: 01/20/2024 1080 Ordering Location: [place] [facility] & Received: 01/20/2024 1613 Gynecology [place] [address] First Screen: Daneylle Reyna, CT Pathologist: Christy Esqueda MD Specimen: ThinPrep Pap Test, Cervix 01/25/2024 1:53 PM CDT [facility] Interpretation Negative for intraepithelial lesion or malignancy. 01/25/2024 1:53 PM CDT [facility] Specimen Adequacy Satisfactory for evaluation, endocervical/underwood sformation zone component present. 01/25/2024 1:53 PM CDT [facility] Other Findings Hyperkeratosis. Case reviewed by the pathologist. 01/25/2024 1:53 PM CDT [facility] Clinical Information 01/25/2024 1:53 PM CDT [facility] Pap Educational Note The Pap test is [...] current consensus management guidelines, refer to the [place] Society for Colposcopy and Cervical Pathology website at www.asccp.org First Screen performed at: [facility] [address] [place] [id number] 01/25/2024 1:53 PM CDT [facility] [place] [facility] [place] CERVIX UTERI STRUCTURE / Unknown 01/20/2024 3:30 PM CDT 01/20/2024 4:13 PM CDT Edie Mann MD BKR LAB CYTOLOGY O RDERABLES [place] [id number] [place] [address], [facility] * HPV, High Risk (01/20/2024 3:30 PM CDT) High Risk HPV Negative Negative [facility] 01/25/2024 1:53 PM CDT [facility] Disclaimer The APTIMA HPV Assay is an [...] FDA approved for this assay using the [employer] System. The Aptima High Risk HPV assay [...] for testing on vaginal and/or rectal specimens. [employer] has internally validated these specimen sources. The expected normal reference range is negative. [facility] 01/25/2024 1:53 PM CDT [facility] [place] [employer] [place] CERVIX UTERI STRUCTURE / Unknown 01/20/2024 3:30 PM CDT 01/22/2024 12:36 PM CDT Edie Mann MD BKR LAB MOLEC DIAG N ORD [facility] [address] from Last 3 Months or Most Recently Relevant to Health Maintenance Care Teams Decaler Relationship Specialty Start Date End Date Pcp, No PCP - General 09/14/23 Mahnaz Montejo MD [address] [place] [address] Orthopaedic Surgery Sports Medicine 04/10/24
--- OUTSIDE RECORDS SUMMARY | 2024-11-17 21:22 | XMS_ITS | Encounter Summary ---
Author Organization [facility] Address [address] [place] [id number] Care Team Providers Care Orthoptist Name Role Phone Pcp, No Primary Care Provider Unavailabl e Mahnaz Montejo MD Unavailable Reason for Visit * Reason Comments Shoulder Pain Encounter Details Date Type Department Care Team (Late st Contact Info) Description 11/12/2024 7:26 PM FORM PRESSER - 11/12/2024 9:49 PM FORM PRESSER Emergency [facility] Emergency Services [address] [place] [address] Amadou Catalan MD [address], [place] [id number] Rehana Guzmán, My Mendez RN Chronic left shoulder pain (Primary Dx) Discharge Disposition: Home or Self Care Social History Tobacco Use Types Packs/Day Years Used Date Smoking Tobacco: Every Day Cigarettes Smokeless Tobacco: Never Alcohol Use Standard Drinks/Week Comments Yes 0 (1 standard drink = 0.6 oz pur e alcohol) social Inadequate Housing Answer Date Recorded Social Determinants: Housing (Overall Score Help er) 0 09/25/2021 Interpersonal Safety Answer Date Record ed How often does anyone, celiojuanpablo ding family and friends, physically hurt you? Never 11/12/2024 How often does anyone, celiou ding family and friends, insult or talk down to you? Never 11/12/2024 How often does anyone, inclu ding family and friends, threaten you with harm? Never 11/12/2024 How often does anyone, inclu ding family and friends, scream or curse at [...] Comments Blood Pressure 149/91 11/12/2024 9:43 PM FORM PRESSER Pulse 68 11/12/2024 9:43 PM FORM PRESSER Temperature 36.2 C (97.1 F) 11/12/2024 7:29 PM FORM PRESSER Respiratory Rate 14 11/12/2024 9:43 PM FORM PRESSER Oxygen Saturation 98% 11/12/2024 9:43 PM FORM PRESSER Inhaled Oxygen Concentration - - Weight 86 kg (189 lb 9.5 oz) 11/12/2024 7:29 PM FORM PRESSER Height 167.6 cm (5' 6) 11/12/2024 7:29 PM FORM PRESSER Body Mass Index 30.6 11/12/2024 7:29 PM FORM PRESSER documented in this encounter Discharge Instructions * Discharge Instructions* Amadou Catalan MD - 11/12/2024 9:40 PM FORM PRESSER The x-ray of your left shoulder shows some signs of arthritis and calcium buildup which is likely causing some of your pain. Please follow-up with orthopedic surgery for further evaluation. Take yourmedications as prescribed. Orthopedic surgery follow-up information was provided in the discharge pa perwork. If you develop chest pain or difficulty breathing please return to the emergency department. PRESSER * Attachments The following attachments cannot be sent through Care Everywhere. * Arthralgia (Malawian) * Shoulder Pain, Uncertain Cause (Malawian) documented in this encounter Medications at Time of Discharge Medication Sig Dispensed Refills Start Date End Date predniSONE (DELTASONE) 20 MG tablet Take 2 tablets by mouth daily. 10 tablet 08/22/2024 albuterol 108 (90 Base) MCG/ACT inhaler Inhale 2 puffs into the lungs every 4 hours as needed for Wheezing. 8.5 g 08/22/2024 sertraline (ZOLOFT) 50 MG tablet Take 1 tablet by mouth daily. 90 tablet 2 05/01/2024 01/26/2025 omeprazole (PriLOSEC) 40 MG capsule Take 40 mg by mouth daily. cyclobenzaprine (FLEXERIL) 5 MG tablet TAKE 1 TABLET BY MOUTH EVERY DAY AT BEDTIME NEEDED FOR MUSCLE SPASM 11/10/2023 naproxen (NAPROSYN) 500 MG tablet Take 1 tablet by mouth in the morning and 1 tablet in the evening. Take with meals. 10 tablet 03/26/2024 cyclobenzaprine (FLEXERIL) 10 MG tablet Take 1 tablet by mouth 3 times daily as needed for Muscle spasms. 15 tablet 03/26/2024 lidocaine (LIDOCARE) 4 % patch Place 1 patch onto the skin every 24 hours. 10 patch 02/03/2024 doxycycline monohydrate (ADOXA) 100 MG tablet Take 1 tablet by mouth in the morning and 1 tablet in the evening. 20 tablet 10/09/2023 Probiotic Product (Florajen3) capsule Take 1 capsule by mouth in the morning and 1 capsule in the evening. 30 capsule 10/09/2023 HYDROcodone-acetamino phen (NORCO) 5-325 MG per tablet TAKE 1 TO 2 TABLETS BY MOUTH THREE TIMES DAILY NEEDED FOR PAIN. MAXIMUM 5 TABLET / 24 HOUR 09/19/2023 clindamycin (CLINDAGEL) 1 % gel clindamycin 1 % topical gel gabapentin (NEURONTIN) 300 MG capsule gabapentin 300 mg capsule documented as of this encounter Discharge Disposition Disposition Code Departure Means Destination Comment s Home or Self Care [facility] documented in this encounter ED Notes * Amadou Catalan MD - 11/12/2024 7:55 PM CST Patient : Penelope Roberts Age: [age] year old Sex: female Encounter Date: 11/12/2024 History Chief Complaint: Left shoulder pain HPI: Penelope Roberts is a 48 year old female past medical history of chronic cervical pain, chronic left>right hip pain, PCOS, anxiety presents to the emergency department with left shoulder pain. She has been experiencing left-sided shoulder pain for about 2 weeks now. Was seen at [facility] whereshe was told and x-ray showed calcium deposits within the left shoulder. Her shoulder slowly began to improve but worsened today when her shoulder was yanked while doing a family member's hair. She is treated with Motrin and Vicodin without significant improvement. No chest pain or shortness of breath. Reviewed PCP office note from 09/28/2024 discussing patient's chronic right hip pain. She follows with Ortho for this and is planning for MRI and possible hip replacement. Takes hydrocortisone, muscle relaxants, gabapentin. Has been following a spine physician in [place] but has not seen one since she is recently moved. Saw orthopedic surgery at [facility] but is planning not to follow-up with them as she did not connect well with them. Past/Family/Social History No Known Allergies Current Facility-Administered Medications Medication levonorgestrel (MIRENA) (52 MG) 20 MCG/DAY intrauterine device 52 mg Current Outpatient Medications Medication Sig predniSONE (DELTASONE) 20 MG tablet Take 2 tablets by mouth daily. albuterol 108 (90 Base) MCG/ACT inhaler Inhale 2 puffs into the lungs every 4 hours as needed for Wheezing. sertraline (ZOLOFT) 50 MG tablet Take 1 tablet by mouth daily. omeprazole (PriLOSEC) 40 MG capsule Take 40 mg by mouth daily. cyclobenzaprine (FLEXERIL) 5 MG tablet TAKE 1 TABLET BY MOUTH EVERY DAY AT BEDTIME NEEDED FOR MUSCLE SPASM (Patient not taking: Reported on 04/04/2024) naproxen (NAPROSYN) 500 MG tablet Take 1 tablet by mouth in the morning and 1 tablet in the evening. Take with meals. (Patient not taking: Reported on 04/04/2024) cyclobenzaprine (FLEXERIL) 10 MG tablet Take 1 tablet by mouth 3 times daily as needed for Muscle spasms. lidocaine (LIDOCARE) 4 % patch Place 1 patch onto the skin every 24 hours. doxycycline monohydrate (ADOXA) 100 MG tablet Take 1 tablet by mouth in the morning and 1 tablet inthe evening. (Patient not taking: Reported on 01/20/2024) Probiotic Product (Florajen3) capsule Take 1 capsule by mouth in the morning and 1 capsule in the evening. (Patient not taking: Reported on 01/20/2024) HYDROcodone-acetaminophen (NORCO) 5-325 MG per tablet TAKE 1 TO 2 TABLETS BY MOUTH THREE TIMES DAILY NEEDED FOR PAIN. MAXIMUM 5 TABLET / 24 HOUR clindamycin (CLINDAGEL) 1 % gel clindamycin 1 % topical gel gabapentin (NEURONTIN) 300 MG capsule gabapentin 300 mg capsule Past Medical History: Diagnosis Date Anxiety History of bladder cancer 02/26/2024 Hx of migraines required hospitalization in past PCOS (polycystic ovarian syndrome) depression Past Surgical History: Procedure Laterality Date Bladder surgery tumor removed Carpal tunnel release Bilateral section, low transverse Cholecystectomy D and c 2009 Neck/chest procedure unlisted 2014 neck surgery Pilonidal cyst drainage ? drainage or other Spine surgery procedure unlisted Treat ectopic preg,rmv tube/ovary 2009 Family History Problem Relation Age of Onset Heart disease Father Diabetes Father Social History Tobacco Use Smoking status: Every Day Current packs/day: 1.00 Types: Cigarettes Smokeless tobacco: Never Vaping Use Vaping status: never used Substance Use Topics Alcohol use: Yes Comment: social Drug use: Not Currently Review of Systems Per HPI Physical Exam Physical Exam ED Triage Vitals [11/12/241928] ED Triage Vitals Group Temp 97.1 ??F (36.2 ??C) Heart Rate 79 Resp 18 BP (!) 192/94 SpO2 100 % EtCO2 mmHg Height 5' 6 (1.676 m) Weight 189 lb 9.5 oz (86 kg) Weight Scale Used Scale in bed BMI (Calculated) 30.6 IBW/kg (Calculated) 59.3 GENERAL: No distress PULMONARY: Airway patent. Non labored respirations. CARDIAC: Warm and well perfused. ABDOMEN: Soft, non-distended, and non-tender. EXTREMITIES: Diffuse tenderness of the left shoulder. No tenderness of the elbow or hand. Strength and sensation intact of the left upper extremity. NEUROLOGICAL: Awake and alert. Moving all extremities. Procedures ED Procedures Procedures Lab Results ED Lab No results found for this visit on 11/12/24. EKG My EKG Interpretation: Rate 78 SD interval 156 QRS duration 70 QTc [address] segment elevation depression Consistent with normal sinus rhythm Final result pending cardiology interpretation Radiology Results ED Radiology Results Imaging Results XR SHOULDER 3 VIEWS LEFT (Final result) Result time 11/12/24 21:16:40 Final result Impression: IMPRESSION: 1. Degenerative change of the greater tuberosity with a subtle degree of calcium deposition likely reflects rotator cuff pathology with mild calcific tendinitis. 2. 0.9 cm calcification overlying the proximal humeral diaphysis likely reflects a calcified body within the biceps tendon sheath. 3. No acute osseous injury seen. Electronically Signed by: Amadou Martin MD Signed on: 11/12/2024 9:16 PM Created on Workstation ID: [id number] Signed on Workstation ID: [id number] Narrative: EXAM: XR SHOULDER 3 VIEWS LEFT DATE [...] Partial visualization of the thorax is normal. ED Medications ED Medications ED Medication Orders (From admission, onward) Ordered Start Status Ordering Provider 11/12/24210111/12/242102 ketorolac (TORADOL) injection 15 mg ONCE Last JAN action: Given AMADOU CATALAN 11/12/24201011/12/242011 oxyCODONE (IMM REL) (ROXICODONE) tablet 5 mg ONCE Last JAN action: Given AMADOU CATALAN 11/12/24201011/12/242011 orphenadrine (NORFLEX) injection 60 mg ONCE Last MAR action: Given AMADOU CATALAN ED Course Vitals: 11/12/24 1929 11/12/248 11/12/24 2143 BP: (!) 192/94 (!) 193/105 (!) 149/91 BP Location: LUE - Left upper extremity Patient Position: Supine Pulse: 79 82 68 Resp: 18 14 Temp: 97.1 ??F (36.2 ??C) TempSrc: Temporal SpO2: 100% 98% 98% Weight: 86 kg (189 lb 9.5 oz) Height: 5' 6 (1.676 m) LMP: 07/05/2024 Consults None Medical Decision Making Penelope Roberts is a 48 year old female past medical history of chronic cervical pain, chronic left>right hip pain, PCOS, anxiety presents to the emergency department with left shoulder pain. She is afebrile and overall well-appearing. Hemodynamically stable. Symptoms are most consistent with chronicleft shoulder pain. She has a long history of chronic pain. Has been evaluated in the past for thispain and has been shown to have degenerative changes. X-rays today redemonstrate this per radiology. EKG without ischemic changes. She is advised to follow-up with orthopedic surgery. She is already in the process of being set up with chronic pain. Has follow-up with PCP scheduled already as well. Return precautions reviewed. She was discharged home. Does the Patient have sepsis: NO Critical Care No Critical Care Disposition Clinical Impression and Diagnosis 2:13 AM ED Diagnosis Diagnosis Comment Associated Orders Final diagnosis Chronic left shoulder pain -- -- Follow Up: Mahnaz Montejo MD [facility] [id number] Summary of your Discharge Medications You have not been prescribed any medications. Pt is discharged to home/self care in stable condition. Discharge 11/12/2024 9:38 PM Penelope [place] discharge to home/self care. Amadou Catalan MD 11/13/24 0214 PRESSER * Rehana Guzmán RN - 11/12/2024 7:29 PM CST Known calcium build up in shoulder. Was doing someone hair today and twisted and pain shot up Took vicodin and motrin at 1500 no relief PRESSER documented in this encounter Plan of Treatment Not on file documented as of this encounter Procedures Procedure Name Priority Date/Time Associated Diagnosis Comments XR SHOULDER 3 VIEWS LEFT STAT 025 8:35 PM FORM PRESSER ELECTROCARDIOGRAM 12-LEAD STAT 2024 8:26 PM FORM PRESSER documented in this encounter Results * XR SHOULDER 3 VIEWS LEFT (11/12/2024 8:35 PM FORM PRESSER) Anatomical Region Laterality Modality Shoulder Left Digital Radiogra phy 11/12/2024 9:11 PM FORM PRESSER Impressions 11/12/2024 9:16 PM FORM PRESSER IMPRESSION: 1. Degenerative change of the greater tuberosity with a subtle degree of calcium deposition likely reflects rotator cuff pathology with mild calcific tendinitis. 2. 0.9 cm calcification overlying the proximal humeral diaphysis likely reflects a calcified body within the biceps tendon sheath. 3. No acute osseous injury seen. Electronically Signed by: Amadou Martin MD Signed on: 11/12/2024 9:16 PM Created on Workstation ID: [id number] Signed on Workstation ID: [id number] Narrative 11/12/2024 9:16 PM FORM PRESSER EXAM: XR SHOULDER 3 VIEWS LEFT DATE [...] of the thorax is normal. Procedure Note Amadou Martin MD - 11/12/2024 EXAM: XR SHOULDER [...] acute osseous injury seen. Electronically Signed by: Amadou Martin MD Signed on: 11/12/2024 9:16 PM Created on Workstation ID: [id number] Signed on Workstation ID: [id number] Amadou Catalan MD IMG XR PROCEDURES * Electrocardiogram 12-Lead (11/12/2024 8:26 PM FORM PRESSER) Systolic Blood Pressure 187 MUSE Diastolic Blood Pressure 111 MUSE Ventricular Rate EKG/Min (BPM) 78 MUSE Atrial Rate (BPM) 78 MUSE SD-Interval (MSEC) 156 MUSE QRS-Interval (MSEC) 70 MUSE QT-Interval (MSEC) 376 MUSE QTc 428 MUSE P Hibbs (Degrees) 65 MUSE R Hibbs (Degrees) 66 MUSE T Hibbs (Degrees) 72 MUSE REPORT TEXT Normal sinus rhythm Normal ECG No previous ECGs available Confirmed by HELEN SHEPPARD MD ([id number]) on 11/13/2024 12:03:27 PM MUSE 11/12/2024 8:26 PM FORM PRESSER Amadou Catalan MD ECG ORDERABLES MUSE documented in this encounter Visit Diagnoses Diagnosis [...] from light * Given 11/12/2024 9:04 PM FORM PRESSER 15 mg Delto id, Left orphenadrine (NORFLEX) injection 60 mg 60 mg ONCE, Intramuscular, On Tue11/12/24 at 2011, For 1 dose Given 11/12/2024 8:17 PM FORM PRESSER 60 mg Delto id, Right oxyCODONE (IMM REL) (ROXICODONE) tablet 5 mg 5 mg ONCE, Oral, On Tue11/12/24 at 2011, For 1 dose, IMMEDIATE RELEASE Given 11/12/2024 8:17 PM FORM PRESSER 5 mg documented in this encounter Active and Recently Administered Medications Times are shown in FORM PRESSER. Scheduled Medication Order 11/10/2024 11/11/2024 11/12/2024 ketorolac [...] Rehana Guzmán RN) documented in this encounter Orders Medications Ordered That Benson ht Not Have Been Administered Count Last Ordered Date First Ordered Date ketorolac (TORADOL) injection 15 mg 1 11/12 documented in this encounter Care Teams Orthoptist Relationship Specialty Start Date End Date Pcp, No PCP - General 09/14/23 Mahnaz Montejo MD [address] [place] [address] Orthopaedic Surgery Sports Medicine 04/10/24 documented as of this encounter
--- OUTSIDE RECORDS SUMMARY | 2024-11-17 21:22 | XMS_ITS | Continuity of Care Document ---
Author Organization [facility] Address [address] [place] [address] Care Team Providers Care Case Maker Name Role Phone Physician, PCP None Primary Care Physician Unava ilable Encounter Date(s): 10/29/24 - 10/29/24 [facility] [address] [place] [address] Encounter Diagnosis Calcific tendinitis(Discharge Diagnosis) - 10/29/24 Discharge Disposition: 01-Discharge to Home (Routine) Attending Physician: Chelsie Booth MD Allergies, Adverse Reactions, Alerts No Known Allergies Medications ibuprofen 600 mg oral tablet 600 mg = 1 tab(s), Oral, q6hr, X 5 day(s), # 20 tab(s), 0 Refill(s), Pharmacy: [id number], 1 tab(s) Oral q6hr,x5 day(s), 167, cm, 10/29/24 6:42:00 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, Height/Length Dosing, 83.6, kg, 10/29/24 6:42:00 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, Weight Dosing Start Date: 10/29/24 Stop Date: 11/03/24 Status: Ordered Mental Status 10/29/24 Level of Consciousness Alert Vital Signs Most recent to oldest [Reference Range]: 1 Height/Length Measured 167 cm (10/29/24 6:40 AM) Weight 83.6 kg (10/29/24 6:40 AM) Body Mass Index 30 kg/m2 (10/29/24 6:40 AM) SpO2 [90-100 %] 98 % (10/29/24 6:40 AM) Blood Pressure [90-139/60-89 mmHg] 112/7 1mmHg (10/29/24 6:40 AM) Temperature Oral [35.8-37.3 DegC] 36.6 D egC (10/29/24 6:40 AM) Peripheral Pulse Rate [60-100 bpm] 92 bp m (10/29/24 6:40 AM) Respiratory Rate [14-20 br/min] 18 br/mi n (10/29/24 6:40 AM) Social History Social History Type Response Smoking Status Current every day sm oker; Smokeless tobacco use: Never smokeless tobacco; Type: Cigarettes; Tobacco use per day: 15; entered on: 10/29/24 Sex Female Sex Representation Female (finding) Hospital Discharge Instructions Follow Up Care 10/29/2024 06:26:03 With:Physician, PCP None Address:Unknown When:1 to 2 days Note * Chelsie Booth MD: PERFORM Event Display: ED/UC Note-Provider Authored Date: [id number] Encounter Type Emergency Basic Information Time Seen: Chelsie Booth MD ??10/29/2024 06:35 Chief Complaint left shoulder pain that radiates to the neck History of Present Illness 48 yo female with a hx of bulging discs/neck surgery presenting with L shoulder pain x 2 weeks thatis worse today. Denies trauma or injuries; but reports increased activity carrying kids and groceries recently. Tried mucle relaxer and naproxen at home with her gabapentin with minimal relief. Pain is worse with ranging her shoulder. Reports it is similar to prior exacerbations of her neck pain. Lshoulder pain radiating up to her neck. No dizziness, headache, chest pain, sob, numbness, tingling, weakness, syncope, vision changes. No hx of PE/DVT, hormone therapy.?? Social History Alcohol Use:Current Type:Beer, Liquor Frequency:1-2 times per month Electronic Cigarette/Vaping E-Cigarette Use:Never Home/Environment Injuries/Abuse/Neglect in household:No Feels unsafe at home:No Substance Abuse Use:Never Tobacco Smoking tobacco use:Current every day smoker Smokeless tobacco use:Never smokeless tobacco Type:Cigarettes Tobacco use per day:15 Allergies No Known Allergies Physical Exam Vital Signs & Measurements Triage: T: 36.6 ??C (Oral) HR: 92 (Peripheral) BP: 112/71 RR: 18 SpO2: 98% O2 Therapy: Room air WT: 83.6 kg WT: 83.600 kg (Dosing) BMI: 30 SKIN: warm, dry, no jaundice, hives or petechiae EYES: pupils are equally round, extraocular movements intact without nystagmus, clear conjunctiva, non-icteric sclera HENT: normocephalic, atraumatic, moist mucus membranes, oropharynx clear without exudates NECK: Nontender and supple with no nuchal rigidity, no lymphadenopathy, full range of motion BACK: no deformity. no midline spinal ttp. no paraspinal ttp PULM: clear to auscultation without wheezes, rhonchi, or rales, normal excursion, no accessory muscle use and no stridor CVS: regular rate, rhythm, normal S1 and S2.?No appreciated murmurs.?Strong radial pulses with intact distal perfusion GI:?soft, non-tender, non-distended, no palpable masses, no rebound or guarding, no CVA tenderness MSK: +ttp of L shoulder without swelling, pain reproducible also with ranging the hsoulder. Other extremities are nontender to palpation and have no gross deformity, no edema, redness, or swelling NEURO: a/o x 3, GCS 15, normal mentation and speech. art manager intact. Moves all extremities x 4 without motor or sensory deficit Diagnostic Details XR Shoulder Complete Left: XR Shoulder Complete Left (10/29/24 06:52:00) Medication Reconciliation New acetaminophen (acetaminophen 500 mg oral tablet)2 Tabs Oral every 6 hours for 3 Days. Refills: 0. ibuprofen (ibuprofen 600 mg oral tablet)1 Tabs Oral every 6 hours for 5 Days. Refills: 0. Medications Administered During Visit ketorolac, 30 mg, IM oxyCODONE-acetaminophen Tab 5 mg-325 mg, 1 tab(s), Oral Medical Decision Making 48 yo female with a hx of bulging discs/neck surgery presenting with L shoulder pain x 2 weeks thatis worse today. Pain with ranging L shoulder and ttp. Imaging to eval for fracture, calcific tendinitis. Pain control.? 8:23am CXR showed calcifciations; no fracture. iSTOP showed active prescriptions for hydrocodone. Placed in sling- given tylenol/ibuprofen scripts. All of the patients' questions were answered and updated on all results. Discharged home with outpatient follow up. Given strict return to ED precautions. 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 Electronically Signed on 10/29/2024 08:24 AM 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 Chelsie Booth MD XR Shoulder - left Views * Omar Amezquita MD: VERIFY Omar Amezquita MD: VERIFY, PERFORM Omar Amezquita MD: PERFORM, SIGN Omar Amezquita MD: SIGN Sacha Smith: REVIEW Noemy DAVE, Tenzin Wise: REVIEW Direct Radiology, Interface Provider: SIGN, REVIEW Chelsie Booth MD: REVIEW Event Display: XR Shoulder Complete Left Authored Date: [id number] Patient Care team information Care Team Personnel Name: Physician, PCP None Position: View - External Provider Member Role: Primary Care Physician Care Team Related Persons Name: BUZZ DEAN Address: Home [address] [place] [address] Address: Mailing [address] [place] [address] Name: DONALD MARIE Address: Home [address] [place] [address]
--- OUTSIDE RECORDS SUMMARY | 2024-11-17 21:22 | XMS_ITS | Encounter Summary ---
Author Organization [facility] Address [address] [place] [id number] Care Team Providers Care Contact Lens Edge Buffer Name Role Phone Pcp, No Primary Care Provider [facility] Mahnaz Palomino MD Unavailable Encounter Details Date Type Department Care Team (Latest Contact Info) Description 11/12/2024 Travel Social History Tobacco Use Types Packs/Day Years [...] on file documented as of this encounter Plan of Treatment Not on file documented as of this encounter Visit Diagnoses Not on filedocumented in this encounter Care Teams Contact Lens Edge Buffer Relationship Specialty Start Date End Date Pcp, No PCP - General 09/14/23 Mahnaz Montejo MD [facility] [place] [address] Orthopaedic Surgery Sports Medicine 04/10/24 documented as of this encounter
--- OUTSIDE RECORDS SUMMARY | 2024-11-17 21:22 | XMS_ITS | Continuity of Care Document ---
Author Organization [facility] Address [address] [place] [address] Care Team Providers Care Rectification Printer Name Role Phone Physician, PCP None Primary Care Physician Unava ilable Encounter Date(s): 10/29/24 - 10/29/24 [facility] [address] [place] [id number] Encounter Diagnosis Calcific tendinitis(Discharge Diagnosis) - 10/29/24 Discharge Disposition: 01-Discharge to Home (Routine) Attending Physician: Chelsie Booth MD Allergies, Adverse Reactions, Alerts No Known Allergies Medications acetaminophen 500 mg oral tablet 1,000 mg = 2 tab(s), Oral, q6hr, X 3 day(s), # 24 tab(s), 0 Refill(s), Pharmacy: [facility] #[id number], 2 tab(s) Oral q6hr,x3 day(s), 167, cm, 10/29/24 6:42:00 [employer]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, Height/Length Dosing, 83.6, kg, 10/29/24 6:42:00 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, Weight Dosing Start Date: 10/29/24 Stop Date: 11/01/24 Status: Ordered ibuprofen 600 mg oral tablet 600 mg = 1 tab(s), Oral, q6hr, X 5 day(s), # 20 tab(s), 0 Refill(s), Pharmacy: [facility]#[id number], 1 tab(s) Oral q6hr,x5 day(s), 167, cm, 10/29/24 6:42:00 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 Moves all extremities x 4 without [...] Stop Date: 11/03/2024 Sling Application, 10/29/24 7:46:00 AIR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 Electronically Signed on 10/29/2024 08:24 AM AIR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 Chelsie Booth MD XR Shoulder - left Views * Omar Amezquita MD: VERIFY Omar Amezquita MD: VERIFY, PERFORM Omar Amezquita MD: PERFORM, SIGN Omar Amezquita MD: SIGN Sacha Smith: REVIEW Tenzin Salguero RN: REVIEW Direct Radiology, Interface Provider: SIGN, REVIEW Chelsie Booth MD: REVIEW Event Display: XR Shoulder Complete Left Authored Date: Patient Care team information Care Team Personnel Name: Physician, PCP None Position: View - External Provider Member Role: Primary Care Physician Care Team Related Persons Name: MARYANN DEANTrina Lam Address: Home [address] [place] [address] Address: Mailing [address] [place] [address] Name: DONALD MARIE Address: Home [address] [place] [address]
[2024-11-17 21:25] VITALS: BP 163/116; PULSE 91; RESP 18; TEMP 36.1; O2SAT 99
--- NOTE | 2024-11-17 21:43 | ED_ITS ---
HPI - General Adult General Chief complaint: Neck Injury/Pain Stated complaint: neck and shoulder pain Time Seen by Provider: 11/17/24 21:42 History of Present Illness HPI narrative: pt complaining of neck and left shoulder pain. Pt has history of bulging disc in neck. Pain has increased, current medications are not working. Pt states taking out garbage, twisted wrong and heard a crack in neck then pain increased. 48-year-old woman presenting to the emergency department with concern of neck and left shoulder pain. Seen in this emergency department in July with flare pain. Treated temp early with Medrol Dosepak it looks like and oxycodone. Shot of Toradol in the emergency department. Seen a few days later than in primary care and prescribed for further prednisone and [place] and gabapentin Was helping her mother with bags of [place] decorations and twisted wrong. Feels warm somewhat tingly into her right forearm. Both hands feel little puffy. Lots of tension pain in the neck area. Related Data Home Medications ?Medication ?Instructions ?Recorded ?Confirmed acetaminophen 325 mg tablet mg PO Q4-6H PRN 05/25/22 11/19/24 cholecalciferol (vitamin D3) 125 125 mcg PO QDAY 05/25/22 11/19/24 mcg (5,000 unit) capsule ibuprofen 200 mg tablet mg PO .Q6h Prn 05/25/22 11/19/24 sertraline 50 mg tablet 50 mg PO DAILY 03/01/24 11/19/24 Previous Rx's ?Medication ?Instructions ?Recorded clindamycin phosphate 1 % topical 1 applic topical BID PRN cyst #60 03/01/24 gel grams omeprazole 40 mg capsule,delayed 40 mg PO QDAY #90 caps 04/12/24 release gabapentin 300 mg capsule 900 - 1,200 mg (3 - 4 x 300 mg) PO 07/04/24 TID #300 caps prednisone 20 mg tablet 40 mg (2 x 20 mg) PO QDAY #10 tabs 07/16/24 cyclobenzaprine 5 mg tablet 5 mg PO QHS PRN muscle spasm #30 10/15/24 tabs hydrocodone 5 mg-acetaminophen 325 1 - 2 tab PO TID PRN pain #150 tabs 11/11/24 mg tablet oxycodone-acetaminophen 5 mg-325 2 tab PO QHS PRN pain #10 tabs 11/19/24 mg tablet Allergies Allergy/AdvReac Type Severity Reaction Status Date / Time codeine AdvReac Intermediate Vomiting Verified 11/19/24 09:18 Review of Systems Status of ROS: Reports: 6 or more systems reviewed and unremarkable except as noted in History and below [facility] Medical History History of migraine ?Z86.69 - Personal history of other diseases of the nervous system and sense organs (ICD-10) History of malignant neoplasm of bladder ?Z85.51 - Personal history of malignant neoplasm of bladder (ICD-10) Encounter for well woman exam ?Z01.419 - Encounter for gynecological examination (general) (routine) without abnormal findings (ICD-10) Carpal tunnel syndrome of right wrist ?G56.01 - Carpal tunnel syndrome, right upper limb (ICD-10) Surgical History History of unilateral salpingectomy (2012) ?Z90.79 - Acquired absence of other genital organ(s) (ICD-10) History of hysteroscopy ?Z98.890 - Other specified postprocedural states (ICD-10) History of dilation and curettage ?Z98.890 - Other specified postprocedural states (ICD-10) History of cholecystectomy ?Z90.49 - Acquired absence of other specified parts of digestive tract (ICD- 10) History of section ?Z98.891 - History of uterine scar from previous surgery (ICD-10) History of cervical spinal arthrodesis (2014) ?Z98.1 - Arthrodesis status (ICD-10) History of carpal tunnel surgery of right wrist (05/2018) ?Z98.890 - Other specified postprocedural states (ICD-10) History of bladder surgery (2014) ?Z98.890 - Other specified postprocedural states (ICD-10) History of appendectomy ?Z90.49 - Acquired absence of other specified parts of digestive tract (ICD- 10) Family History Brother Bipolar disorder Mother Depression Anxiety Fibromyalgia Maternal Grandmother Depression Fibromyalgia Uncle Depression Aunt Fibromyalgia Other Diabetes Social History Narrative: , has fianc?e, 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, 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 18 does not exercise social drinker- 4/week stress due to illness of family member tobacco abuse- 1/2 pack/day, 20 years What is your current living situation?: I presently have a place to live Problems where you live: declined to answer In the past 12 months, utilities in danger of being shut off: no In past 12 months, lack of transportation kept you from medical appts, meetings, work, or getting things needed for daily living: no In the past 12 mos, have been you worried that your food would run out before you had money to buy more?: never true In the past 12 mos, the food you bought just didn't last and you didn't have money to buy more?: never true Smoking Status: Current every day smoker Non-prescribed substance use: denies use How often does anyone, including family, friends and others, physically hurt you : never How often does anyone, including family, friends and others, insult or talk down to you: rarely How often does anyone, including family, friends and others, threaten you with harm: never How often does anyone, including family, friends and others, scream or curse at you: rarely Health Related Social Needs: Other personal risk factors, not elsewhere classified (Z91.89) Exam Narrative: Exam Narrative: 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 Seems uncomfortable. Seated stiffly moving stiffly. Limited movement her neck extremely tense through the trapezius musculature and tender here as well bilaterally. Well-perfused peripherally. Const: Vital Signs, click to edit/add: Vital Signs - 24 hr 11/17/24 21:25 Temperature 97.0 F L Pulse Rate [Left P ulse Oximeter] 91 Respiratory Rate 18 Blood Pressure [Ri ght Upper Arm] 163/116 H Pulse Oximetry 99 Oxygen Delivery Me thod Room Air Documenting provider has reviewed patient's vital signs: yes Course Vital Signs Vital signs: Initial Vital Signs Temperature 97.0 F L 11/17/24 21:25 Temperature Source Temporal Artery Scan 11/17/24 21:25 Pulse Rate 91 11/17/24 21:25 Pulse Rhythm Regular 11/17/24 21:25 Respiratory Rate 18 11/17/24 21:25 Blood Pressure 163/116 H 11/17/24 21:25 Blood Pressure Mean 131 H 11/17/24 21:25 Blood Pressure Position Sitting 11/17/24 21:25 Pulse Oximetry 99 11/17/24 21:25 Oxygen Delivery Method Room Air 11/17/24 21:25 Vital Signs Temperature 97.0 F L 11/17/24:25 Pulse Rate 91 11/17/24 21:25 Respiratory Rate 18 11/17/24 21:25 Blood Pressure 163/116 H 11/17/24 21:25 Pulse Oximetry 99 11/17/24 21:25 Oxygen Delivery Method Room Air 11/17/24 21:25 Temperature 97.0 F L 11/17/24 21: Pulse Rate 91 11/17/24:25 Respiratory Rate 18 11/17/24 21:25 Blood Pressure 163/116 H 11/17/24 21:25 Pulse Oximetry 99 11/17/24 21:25 Oxygen Delivery Method Room Air 11/17/24 21:25 Medications Administered Medications: Discontinued Medications Generic Name Dose Route Start Last Admin Trade Name Fiona PRN Reason Stop Dose Admin Hydromorphone HCl 1 mg 11/17/24 22:05 11/17/24 22:47 Hydromorphone 0.5 Mg/0.5 Ml Inj IM 11/17/24 22:06 1 mg ONCE ONE Administration Ketorolac Tromethamine 60 mg 11/17/24 22:05 11/17/24 22:45 Ketorolac 60 Mg/2 Ml Inj IM 11/17/24 22:06 60 mg ONCE ONE Administration Prednisone 60 mg 11/17/24 22:05 11/17/24 22:44 Prednisone 20 Mg Tablet PO 11/17/24 22:06 60 mg ONCE ONE Administration Medical Decision Making MDM Narrative Medical decision making narrative: Discussed options for pain relief. I do not think requires further imaging at this time. Appears to have muscle spasm and related pain at a minimum. Flare of cervical radicular pain. Did offer local anesthetic injections but I am not convinced this will work. Settled on IM pain medication - given IM hydromorphone and ketorolac and oral prednisone. Also dispensed a soft collar. On reassessment is clearly moving more easily. Appears more comfortable. She is requesting pain medication through the weekend. Apparently oxycodone/Percocet is more effective. Perhaps brief dosing of this would be acceptable. See patient discharge plan for further discussion Can wear this soft collar for comfort over the next week to 10 days. I hope you can get an appointment soon with the Pain Clinic. Please call for follow-up with your primary care provider as well. Prescribing prednisone and Percocet as discussed from [facility]. Medical Records Medical records reviewed: Yes I reviewed the patient's medical records Discharge Plan Discharge Clinical Impression: Cervical radicular pain, Muscle spasm Patient Disposition: Home w/ Parent or Adult Condition: Improved Additional Instructions: Can wear this soft collar for comfort over the next week to 10 days. I hope you can get an appointment soon with the Pain Clinic. Please call for follow-up with your primary care provider as well. Prescribing prednisone and Percocet as discussed from [facility]. Prescriptions: No Action ibuprofen 200 mg tablet PO .Q6h Prn acetaminophen 325 mg tablet PO Q4-6H PRN Rx Instructions: NO MORE THAN 4000 MG/DAY cholecalciferol (vitamin D3) 125 mcg (5,000 unit) capsule 125 mcg PO QDAY sertraline 50 mg tablet 50 mg PO DAILY clindamycin phosphate 1 % gel 1 applic topical BID PRN (Reason: cyst) Qty: 60 12RF cyclobenzaprine 5 mg tablet 5 mg PO QHS PRN (Reason: muscle spasm) Qty: 30 5RF oxycodone-acetaminophen 5-325 mg tablet 2 tab PO QHS PRN (Reason: pain) Qty: 10 0RF prednisone 20 mg tablet 40 mg PO QDAY Qty: 10 0RF omeprazole 40 mg capsule,delayed release(DR/EC) 40 mg PO QDAY Qty: 90 2RF gabapentin 300 mg capsule 900 - 1,200 mg PO TID Qty: 300 0RF Rx Instructions: Take 900 mg in AM and afternoon, 1200 mg at bedtime. hydrocodone-acetaminophen 5-325 mg tablet 1 - 2 tab PO TID PRN (Reason: pain) Qty: 150 0RF Rx Instructions: Maximum 5 tab/ 24h Follow Up/Referrals: Rasta Bahena MD [Primary Care Provider] - Stand Alone Forms: [employer] Info Instructions
[2024-11-17] MEDS: predniSONE 20 MG TABLET 60 MG PO (22:44)
--- OUTSIDE RECORDS SUMMARY | 2024-11-17 22:44 | XMS_ITS | Clinical Summary ---
Author Organization [facility] Address [address] [place] [address] Care Team Providers Care Emergency Medical Technician/Driver Name Role Phone Pcp, No Primary Care [...] UD) 02/26/2024 Overview (02/26/2024): Mirena IUD (Lot: [id number]; Exp: ) inserted 02/14/2024; due for removal by 02/14/2032 History of bladder cancer 02/26/2024 PMDD (premenstrual dysphoric disorder) Overview (02/26/2024): sertraline Encounters Date Type Department Care Team Description 11/12/2024 7:26 PM CAR CHANGER - 11/12/2024 9:49 PM CAR CHANGER Emergency [facility] [address] [place] [address] Janes Gillespie MD Kerslake, Jessica L, RN My Castillo, top stitcher left shoulder pain (Primary Dx) Discharge Disposition: Home or Self Care 11/12/2024 Travel 09/19/2024 Telephone [facility] [address] [place] [address] Ernie Adan MD Referral 08/22/2024 5:11 PM CDT - 08/22/2024 6:37 PM CDT Emergency [facility] [address] [place] [address] Herman Billingsley DO Baetz, Sydnie, RN Bronchitis [...] Comments Blood Pressure 149/91 11/12/2024 9:43 PM CAR CHANGER Pulse 68 11/12/2024 9:43 PM CAR CHANGER Temperature 36.2 C (97.1 F) 11/12/2024 7:29 PM CAR CHANGER Respiratory Rate 14 11/12/2024 9:43 PM CAR CHANGER Oxygen Saturation 98% 11/12/2024 9:43 PM CAR CHANGER Inhaled Oxygen Concentration - - Weight 86 kg (189 lb 9.5 oz) 11/12/2024 7:29 PM CAR CHANGER Height 167.6 cm (5' 6) 11/12/2024 7:29 PM CAR CHANGER Body Mass Index 30.6 11/12/2024 7:29 PM CAR CHANGER Plan of Treatment Health Maintenance Due Date [...] this topic Medical Devices Implanted Type [facility] Manager Device Identifier Shelf Expiration Date Model / Serial / Lot Contraceptive -02/14/2024 Implanted:Qty : 1 on 02/14/2024 by Edie Mann MD Contraceptive Cervix 04/06/2026 [id number] 01 [id number] Description:Mirena IUD Procedures Procedure Name Priority Date/Time Associated Diagnosis Comments XR SHOULDER 3 VIEWS LEFT STAT 025 8:35 PM CAR CHANGER ELECTROCARDIOGRAM 12-LEAD STAT 2024 8:26 PM CAR CHANGER XR CHEST PA AND LATERAL 2 VIEWS [...] SHOULDER 3 VIEWS LEFT (11/12/2024 8:35 PM CAR CHANGER) Anatomical Region Laterality Modality Shoulder Left Digital Radiogra phy 11/12/2024 9:11 PM CAR CHANGER Impressions 11/12/2024 9:16 PM CAR CHANGER IMPRESSION: 1. Degenerative change of the greater [...] 11/12/2024 9:16 PM Created on Workstation ID: [id number] Signed on Workstation ID: [id number] Narrative 11/12/2024 9:16 PM CAR CHANGER EXAM: XR SHOULDER 3 VIEWS LEFT DATE [...] 11/12/2024 9:16 PM Created on Workstation ID: [id number] Signed on Workstation ID: [id number] Janes Gillespie MD IMG XR PROCEDURES * Electrocardiogram 12-Lead (11/12/2024 8:26 PM CAR CHANGER) Systolic Blood Pressure 187 MUSE Diastolic Blood Pressure 111 MUSE Ventricular Rate EKG/Min (BPM) 78 MUSE Atrial Rate (BPM) 78 MUSE AR-Interval (MSEC) 156 MUSE QRS-Interval (MSEC) 70 MUSE QT-Interval (MSEC) 376 MUSE QTc 428 MUSE P Vista (Degrees) 65 MUSE R Vista (Degrees) 66 MUSE T Vista (Degrees) 72 MUSE REPORT TEXT Normal sinus rhythm Normal ECG No previous ECGs available Confirmed by VALARIE FARIAS, HELEN ([id number]) on 11/13/2024 12:03:27 PM MUSE 11/12/2024 8:26 PM CAR CHANGER Janes Gillespie MD ECG ORDERABLES MUSE * XR CHEST PA AND LATERAL 2 VIEWS (08/22/2024 5:44 PM CDT) Anatomical Region Laterality Modality Chest/Thorax N/A Digital Radiogra phy 08/22/2024 5:58 PM CDT Impressions 08/22/2024 5:58 PM CDT IMPRESSION: No acute cardiopulmonary disease. Electronically Signed by: Sivan Craig MD Signed on: 08/22/2024 5:58 PM Created on Workstation ID: [id number] Signed on Workstation ID: [id number] Narrative 08/22/2024 5:58 PM CDT XR CHEST [...] 08/22/2024 5:58 PM Created on Workstation ID: [id number] Signed on Workstation ID: [id number] Herman Billingsley DO IMG XR PROCEDURES * COVID/Flu/RSV panel (08/22/2024 5:22 PM CDT) Rapid SARS-COV-2 by PCR Not Detected Not Detected / Detected / Presumptive Positive / Inhibitors present THORPE - GXP1 08/22/2024 6:02 PM [facility] Influenza A by PCR Not Detected Not Detected [place] [address] 08/22/2024 6:02 PM T [facility] Influenza B by PCR Not Detected Not Detected [place] [address] 08/22/2024 6:02 PM T [facility] RSV BY PCR Not Detected Not Detected [place] [address] 08/22/2024 6:02 PM [facility] Isolation Guidelines [place] [address] 08/22/2024 6:02 PM [facility] Comment: Do not use this test result [...] See COVID-19 Deisolation Resource Guide Procedural Comment [place] [address] 08/22/2024 6:02 PM [facility] Comment: SARS-COV-2 nucleic acid has not been detected indicating the absence of COVID- 19. This test was performed using the [employer] Xpert Xpress SARS-CoV-2/Flu/RSV RT-PCR test that has been given Emergency Use Authorization (EUA) by the [place] Food and Drug Administration (FDA). These tests are considered definitive and do not need to be confirmed by another method. Swab MID-TURBINATE NASAL SWAB / Unknown 08/22/2024 5:22 PM CDT 08/22/2024 5:24 PM CDT Herman Billingsley DO BKR LAB BLOOD ORDERA BLES [facility] [address] [place] [id number] * Pap Test (01/20/2024 3:30 PM CDT) Case Report Gynecological Cytology Case: [id number] Authorizing Provider: Edie Mann MD Collected: 01/20/2024 2950 Ordering Location: [facility] Received: 01/20/2024 1613 [facility] [place] [address] First Screen: Danyelle Reyna, CT Pathologist: Christy Esqueda MD Specimen: ThinPrep Pap Test, Cervix 01/25/2024 1:53 PM CDT [facility] Interpretation Negative for intraepithelial lesion or malignancy. 01/25/2024 1:53 PM CDT [facility] Specimen Adequacy Satisfactory for evaluation, endocervical/underwood sformation zone component present. 01/25/2024 1:53 PM CDT [facility] Other Findings Hyperkeratosis. Case reviewed by the pathologist. 01/25/2024 1:53 PM CDT [facility] Clinical Information 01/25/2024 1:53 PM CDT [facility] Pap Educational Note The Pap test is [...] current consensus management guidelines, refer to the [place] Society for Colposcopy and Cervical Pathology website at www.asccp.org First Screen performed at: [facility] [address] [place] [phone] 01/25/2024 1:53 PM CDT [facility] [place] CERVIX UTERI STRUCTURE / Unknown 01/20/2024 3:30 PM CDT 01/20/2024 4:13 PM CDT Edie Mann MD BKR LAB CYTOLOGY O RDERABLES [place] [id number] [place] [address], [facility] * HPV, High Risk (01/20/2024 3:30 PM CDT) High Risk HPV Negative Negative [facility] 01/25/2024 1:53 PM CDT [facility] Disclaimer The APTIMA HPV Assay is an [...] FDA approved for this assay using the [employer] System. The Aptima High Risk HPV assay [...] for testing on vaginal and/or rectal specimens. [employer] has internally validated these specimen sources. The expected normal reference range is negative. [facility] 01/25/2024 1:53 PM CDT [facility] [place] CERVIX UTERI STRUCTURE / Unknown 01/20/2024 3:30 PM CDT 01/22/2024 12:36 PM CDT Edie Mann MD BKR LAB MOLEC DIAG N ORD [facility] [address] from Last 3 Months or Most Recently Relevant to Health Maintenance Care Teams Emergency Medical Technician/Driver Relationship Specialty Start Date End Date Pcp, No PCP - General 09/14/23 Mahnaz Montejo MD [address] [place] [address] Orthopaedic Surgery Sports Medicine 04/10/24
[2024-11-17] MEDS: KETOROLAC 60 MG/2 ML inj IM (22:45)
--- OUTSIDE RECORDS SUMMARY | 2024-11-17 22:45 | XMS_ITS | Encounter Summary ---
Author Organization [facility] Address [address] [place] [address] Care Team Providers Care Figure Refinisher And Repairer Name Role Phone Pcp, No Primary Care Provider [facility] Mahnaz Palomino MD Unavailable Encounter Details Date [...] on filedocumented in this encounter Care Teams Figure Refinisher And Repairer Relationship Specialty Start Date End Date Pcp, No PCP - General 09/14/23 Mahnaz Montejo MD [facility] [place] [address] Orthopaedic Surgery Sports Medicine 04/10/24 documented as of this encounter
--- OUTSIDE RECORDS SUMMARY | 2024-11-17 22:45 | XMS_ITS | Encounter Summary ---
Author Organization [facility] Address [address] [place] [address] Care Team Providers Care Blister Pack Operator Name Role Phone Pcp, No Primary Care Provider Unavailabl e Mahnaz Montejo MD Unavailable Reason for Visit * Reason Comments Shoulder Pain Encounter Details Date Type Department Care Team (Late st Contact Info) Description 11/12/2024 7:26 PM VETERINARY ATTENDANT - 11/12/2024 9:49 PM VETERINARY ATTENDANT Emergency [facility] Emergency Services [address] [place] [address] Amadou Catalan MD [address], [place] [id number] Rehana Guzmán, My Mendez RN Chronic left [...] Comments Blood Pressure 149/91 11/12/2024 9:43 PM VETERINARY ATTENDANT Pulse 68 11/12/2024 9:43 PM VETERINARY ATTENDANT Temperature 36.2 C (97.1 F) 11/12/2024 7:29 PM VETERINARY ATTENDANT Respiratory Rate 14 11/12/2024 9:43 PM VETERINARY ATTENDANT Oxygen Saturation 98% 11/12/2024 9:43 PM VETERINARY ATTENDANT Inhaled Oxygen Concentration - - Weight 86 kg (189 lb 9.5 oz) 11/12/2024 7:29 PM VETERINARY ATTENDANT Height 167.6 cm (5' 6) 11/12/2024 7:29 PM VETERINARY ATTENDANT Body Mass Index 30.6 11/12/2024 7:29 PM VETERINARY ATTENDANT documented in this encounter Discharge Instructions * Discharge Instructions* Amadou Catalan MD - 11/12/2024 9:40 PM VETERINARY ATTENDANT The x-ray of your left shoulder shows some signs of arthritis and calcium buildup which is likely causing some of your pain. Please follow-up with orthopedic surgery for further evaluation. Take yourmedications as prescribed. Orthopedic surgery follow-up information was provided in the discharge pa perwork. If you develop chest pain or difficulty breathing please return to the emergency department. RINARY ATTENDANT * Attachments The following attachments cannot be sent through Care Everywhere. * Arthralgia (Kenyan) * Shoulder Pain, Uncertain Cause (Kenyan) documented in this encounter Medications at Time [...] [facility] documented in this encounter ED Notes [...] about 2 weeks now. Was seen at [facility] whereshe was told and x-ray [...] Has been following a spine physician in [place] but has not seen one since she is recently moved. Saw orthopedic surgery at [facility] but is planning not to follow-up with [...] 11/12/24. EKG My EKG Interpretation: Rate 78 IA interval 156 QRS duration 70 QTc [address] segment elevation depression Consistent [...] 11/12/2024 9:16 PM Created on Workstation ID: [id number] Signed on Workstation ID: [id number] Narrative: EXAM: XR SHOULDER 3 VIEWS LEFT [...] -- -- Follow Up: Mahnaz Montejo MD [facility] [id number] Summary of your Discharge Medications You have not been prescribed any medications. Pt is discharged to home/self care in stable condition. Discharge 11/12/2024 9:38 PM Pen[place] discharge to home/self care. Amadou Catalan MD 11/13/24 0214 RINARY ATTENDANT * Rehana Guzmán RN - 11/12/2024 7:29 PM CST Known calcium build up in shoulder. Was doing someone hair today and twisted and pain shot up Took vicodin and motrin at 1500 no relief RINARY ATTENDANT documented in this encounter Plan of Treatment Not on file documented as of this encounter Procedures Procedure Name Priority Date/Time Associated Diagnosis Comments XR SHOULDER 3 VIEWS LEFT STAT 025 8:35 PM VETERINARY ATTENDANT ELECTROCARDIOGRAM 12-LEAD STAT 2024 8:26 PM VETERINARY ATTENDANT documented in this encounter Results * XR SHOULDER 3 VIEWS LEFT (11/12/2024 8:35 PM VETERINARY ATTENDANT) Anatomical Region Laterality Modality Shoulder Left Digital Radiogra phy 11/12/2024 9:11 PM VETERINARY ATTENDANT Impressions 11/12/2024 9:16 PM VETERINARY ATTENDANT IMPRESSION: 1. Degenerative change of the greater [...] 11/12/2024 9:16 PM Created on Workstation ID: [id number] Signed on Workstation ID: [id number] Narrative 11/12/2024 9:16 PM VETERINARY ATTENDANT EXAM: XR SHOULDER 3 VIEWS LEFT DATE [...] 11/12/2024 9:16 PM Created on Workstation ID: [id number] Signed on Workstation ID: [id number] Amadou Catalan MD IMG XR PROCEDURES * Electrocardiogram 12-Lead (11/12/2024 8:26 PM VETERINARY ATTENDANT) Systolic Blood Pressure 187 MUSE Diastolic Blood Pressure 111 MUSE Ventricular Rate EKG/Min (BPM) 78 MUSE Atrial Rate (BPM) 78 MUSE IA-Interval (MSEC) 156 MUSE QRS-Interval (MSEC) 70 MUSE QT-Interval (MSEC) 376 MUSE QTc 428 MUSE P [place] (Degrees) 65 MUSE R [place] (Degrees) 66 MUSE T [place] (Degrees) 72 MUSE REPORT TEXT Normal sinus rhythm Normal ECG No previous ECGs available Confirmed by HELEN SHEPPARD MD ([id number]) on 11/13/2024 12:03:27 PM MUSE 11/12/2024 8:26 PM VETERINARY ATTENDANT Amadou Catalan MD ECG ORDERABLES MUSE documented [...] from light * Given 11/12/2024 9:04 PM VETERINARY ATTENDANT 15 mg [place] id, Left orphenadrine (NORFLEX) injection 60 mg 60 mg ONCE, Intramuscular, On Tue11/12/24 at 2011, For 1 dose Given 11/12/2024 8:17 PM VETERINARY ATTENDANT 60 mg [place] id, Right oxyCODONE (IMM REL) (ROXICODONE) tablet 5 mg 5 mg ONCE, Oral, On Tue11/12/24 at 2011, For 1 dose, IMMEDIATE RELEASE Given 11/12/2024 8:17 PM VETERINARY ATTENDANT 5 mg documented in this encounter Active and Recently Administered Medications Times are shown in VETERINARY ATTENDANT. Scheduled Medication Order 11/10/2024 11/11/2024 11/12/2024 ketorolac [...] 11/12 documented in this encounter Care Teams Blister Pack Operator Relationship Specialty Start Date End Date Pcp, No PCP - General 09/14/23 Mahnaz Montejo MD [address] [place] [address] Orthopaedic Surgery Sports Medicine 04/10/24 documented as of this encounter
--- OUTSIDE RECORDS SUMMARY | 2024-11-17 22:45 | XMS_ITS | Referral Summary ---
Author Organization [facility] Address [address] [place] [id number] Care Team Providers Care Stores Clerk Name Role Phone Pcp, No Primary Care Provider Unavailabl e Mahnaz Montejo MD Unavailable Encounters Date Type Department Care Team Description 11/12/2024 Travel 11/12/2024 7:26 PM BONE CHAR KILN TENDER - 11/12/2024 9:49 PM BONE CHAR KILN TENDER Emergency [facility] Emergency Services [address] [place] [address] Janes Gillespie MD Kerslake, Jessica L, RN Gaskill, Lynn M, RN Chronic left shoulder pain (Primary Dx) Discharge Disposition: Home or Self Care 09/19/2024 Telephone [facility] Emergency Services [address] [place] [address] Ernie Adan MD Referral 08/22/2024 Travel 08/22/2024 5:11 PM CDT - 08/22/2024 6:37 PM CDT Emergency [facility] Emergency Services [address] [place] [address] Herman Billingsley DO Baetz, Sydnie, [...] UD) 02/26/2024 Overview (02/26/2024): Mirena IUD (Lot: [id number]; Exp: ) inserted 02/14/2024; due for removal [...] Comments Blood Pressure 149/91 11/12/2024 9:43 PM BONE CHAR KILN TENDER Pulse 68 11/12/2024 9:43 PM BONE CHAR KILN TENDER Temperature 36.2 C (97.1 F) 11/12/2024 7:29 PM BONE CHAR KILN TENDER Respiratory Rate 14 11/12/2024 9:43 PM BONE CHAR KILN TENDER Oxygen Saturation 98% 11/12/2024 9:43 PM BONE CHAR KILN TENDER Inhaled Oxygen Concentration - - Weight 86 kg (189 lb 9.5 oz) 11/12/2024 7:29 PM BONE CHAR KILN TENDER Height 167.6 cm (5' 6) 11/12/2024 7:29 PM BONE CHAR KILN TENDER Body Mass Index 30.6 11/12/2024 7:29 PM BONE CHAR KILN TENDER Plan of Treatment Not on file Medical Devices Implanted Type Area Sample Color Maker Device Identifier Shelf Expiration Date Model / Serial / Lot Contraceptive -02/14/2024 Implanted:Qty : 1 on 02/14/2024 by Edie Mann MD Contraceptive Cervix 04/06/2026 [id number] / / [id number] Description:Mirena IUD Procedures Procedure Name Priority Date/Time Associated Diagnosis Comments XR SHOULDER 3 VIEWS LEFT STAT 025 8:35 PM BONE CHAR KILN TENDER ELECTROCARDIOGRAM 12-LEAD STAT 2024 8:26 PM BONE CHAR KILN TENDER XR CHEST PA AND LATERAL 2 VIEWS [...] SHOULDER 3 VIEWS LEFT (11/12/2024 8:35 PM BONE CHAR KILN TENDER) Anatomical Region Laterality Modality Shoulder Left Digital Radiogra phy 11/12/2024 9:11 PM BONE CHAR KILN TENDER Impressions 11/12/2024 9:16 PM BONE CHAR KILN TENDER IMPRESSION: 1. Degenerative change of the greater [...] 11/12/2024 9:16 PM Created on Workstation ID: [id number] Signed on Workstation ID: [id number] Narrative 11/12/2024 9:16 PM BONE CHAR KILN TENDER EXAM: XR SHOULDER 3 VIEWS LEFT DATE [...] 11/12/2024 9:16 PM Created on Workstation ID: [id number] Signed on Workstation ID: [id number] Janes Gillespie MD IMG XR PROCEDURES * Electrocardiogram 12-Lead (11/12/2024 8:26 PM BONE CHAR KILN TENDER) Systolic Blood Pressure 187 MUSE Diastolic Blood Pressure 111 MUSE Ventricular Rate EKG/Min (BPM) 78 MUSE Atrial Rate (BPM) 78 MUSE CO-Interval (MSEC) 156 MUSE QRS-Interval (MSEC) 70 MUSE QT-Interval (MSEC) 376 MUSE QTc 428 MUSE P [place] (Degrees) 65 MUSE R [place] (Degrees) 66 MUSE T [place] (Degrees) 72 MUSE REPORT TEXT Normal sinus rhythm Normal ECG No previous ECGs available Confirmed by VALARIE FARIAS, HELEN ([id number]) on 11/13/2024 12:03:27 PM MUSE 11/12/2024 8:26 PM BONE CHAR KILN TENDER Janes Gillespie MD ECG ORDERABLES MUSE * XR CHEST PA AND LATERAL 2 VIEWS (08/22/2024 5:44 PM CDT) Anatomical Region Laterality Modality Chest/Thorax N/A Digital Radiogra phy 08/22/2024 5:58 PM CDT Impressions 08/22/2024 5:58 PM CDT IMPRESSION: No acute cardiopulmonary disease. Electronically Signed by: Sivan Craig MD Signed on: 08/22/2024 5:58 PM Created on Workstation ID: [id number] Signed on Workstation ID: [id number] Narrative 08/22/2024 5:58 PM CDT XR CHEST [...] 08/22/2024 5:58 PM Created on Workstation ID: [id number] Signed on Workstation ID: [id number] Herman Bashor DO IMG XR PROCEDURES * COVID/Flu/RSV panel (08/22/2024 5:22 PM CDT) Rapid SARS-COV-2 by PCR Not Detected Not Detected / Detected / Presumptive Positive / Inhibitors present [facility] [place] 08/22/2024 6:02 PM CDT [facility] Influenza A by PCR Not Detected Not Detected [place] [id number] 08/22/2024 6:02 PM CDT [facility] Influenza B by PCR Not Detected Not Detected [place] [id number] 08/22/2024 6:02 PM T [facility] RSV BY PCR Not Detected Not Detected [facility] [place] 08/22/2024 6:02 PM CDT [facility] Isolation Guidelines [place] [id number] 08/22/2024 6:02 PM T [facility] Comment: Do not use this test result [...] See COVID-19 Deisolation Resource Guide Procedural Comment [place] [id number] 08/22/2024 6:02 PM CDT [facility] Comment: SARS-COV-2 nucleic acid has not been detected indicating the absence of COVID- 19. This test was performed using the [employer] Xpert Xpress SARS-CoV-2/Flu/RSV RT-PCR test that has been given Emergency Use Authorization (EUA) by the [place] Food and Drug Administration (FDA). These tests are considered definitive and do not need to be confirmed by another method. Swab MID-TURBINATE NASAL SWAB / Unknown 08/22/2024 5:22 PM CDT 08/22/2024 5:24 PM CDT Herman Billingsley DO [facility] LAB BLOOD ORDERA BLES [address] [address] * Pap Test (01/20/2024 3:30 PM CDT) Case Report Gynecological Cytology Case: [id number] Authorizing Provider: Edie Mann MD Collected: 01/20/2024 1530 Ordering Location: [facility] Received: 01/20/2024 1613 [facility] [place] [address] First Screen: Danyelle Reyna, CT Pathologist: Christy Esqueda MD Specimen: ThinPrep Pap Test, Cervix 01/25/2024 1:53 PM CDT [facility] Interpretation Negative for intraepithelial lesion or malignancy. 01/25/2024 1:53 PM CDT [facility] Specimen Adequacy Satisfactory for evaluation, endocervical/underwood sformation zone component present. 01/25/2024 1:53 PM CDT [facility] Other Findings Hyperkeratosis. Case reviewed by the pathologist. 01/25/2024 1:53 PM CDT [facility] Clinical Information 01/25/2024 1:53 PM CDT [facility] Pap Educational Note The Pap test is [...] current consensus management guidelines, refer to the [place] Society for Colposcopy and Cervical Pathology website at www.asccp.org First Screen performed at: [facility] [address] [facility] [address] 01/25/2024 1:53 PM CDT [facility] [place] CERVIX UTERI STRUCTURE / Unknown 01/20/2024 3:30 PM CDT 01/20/2024 4:13 PM CDT Edie Mann MD [facility]KR LAB CYTOLOGY O RDERABLES [facility] [address] [place], [place] [address] * HPV, High Risk (01/20/2024 3:30 PM CDT) High Risk HPV Negative Negative [facility] 01/25/2024 1:53 PM CDT [facility] Disclaimer The APTIMA HPV Assay is an [...] FDA approved for this assay using the Drill MapHER System. The Aptima High Risk HPV assay [...] for testing on vaginal and/or rectal specimens. [employer] has internally validated these specimen sources. The expected normal reference range is negative. [facility] 01/25/2024 1:53 PM CDT [facility] [place] CERVIX UTERI STRUCTURE / Unknown 01/20/2024 3:30 PM CDT 01/22/2024 12:36 PM CDT Edie Mann MD [facility]KR LAB MOLEC DIAG N ORD [facility] [address] [place] [address], [facility] from Last 3 Months or Most Recently Relevant to Health Maintenance Care Teams Stores Clerk Relationship Specialty Start Date End Date Pcp, No PCP - General 09/14/23 Mahnaz Montejo MD [address] [place] [address] Orthopaedic Surgery Sports Medicine 04/10/24
[2024-11-17] MEDS: HYDROmorphone 0.5 mg/0.5 ml inj 1 MG IM (22:47)
== END 2024-11-18 00:19 | disposition home or self-care (01) ==
PROVIDERS: Emergency Provider Family Medicine; PCP Family Medicine
DX: M54.12 Radiculopathy, cervical region (principal); M62.838 Other muscle spasm
CPT/HCPCS: 96372; 99284; J1171; J1885; J7512

== ENCOUNTER 2025-03-25 13:29 | Outpatient (CLI) | payer OTHER, SELFPAY | END 2025-03-25 13:30 | disposition home or self-care (01) | LOC: NFLDREF 13:30 | PROVIDERS: PCP Family Medicine; Visit Provider Family Medicine | DX: E78.5 Hyperlipidemia, unspecified (principal) | CPT/HCPCS: 80053; 80061 ==

== ENCOUNTER 2025-07-12 11:15 | Emergency (ER) | payer BC, SELFPAY ==
--- OUTSIDE RECORDS SUMMARY | 2025-06-11 18:24 | XMS_ITS | Encounter Summary ---
Author Organization [facility] Address [address] [place] [id number] Care Team Providers Care Explosives Mixer Operator Name Role Phone Pcp, No Primary Care Provider Unavailabl e Mahnaz Montejo MD Unavailable Reason for Referral * Consult & Treatment (Routine) - Authorized Specialty Diagnoses / Procedures Referred By Raul t Referred To Contact Diagnoses Left hip pain Arthritis of left hip Ziyad Adan MD [address] [place] [address] Phone: tel: fax: Mahnaz Montejo MD Phone: tel: fax: Referral ID Status Reason Start Date Expiration Date V isits Requested Visits Authorized [id number] Authorized 06/11/2025 06/11/2026 1 1 Question Answer service Follow Up Reason for Visit * Reason Comments Hip Pain Encounter Details Date Type Department Care Team (Late st Contact Info) Description 06/11/2025 6:24 PM CDT - 06/11/2025 7:03 PM CDT Emergency [facility] Emergency Services [address] [place] [phone] Ziyad Adan MD [address] [place] [address] Tatum Iyer, Rehana Augustin RN Left hip pain (Primary Dx); Arthritis of left hip Discharge Disposition: Home or Self Care Social History Tobacco Use Types Packs/Day Years Used Date Smoking Tobacco: Every Day Cigarettes Passive Smoke Exposure: Past Smokeless Tobacco: Never Alcohol Use Standard Drinks/Week Comments Yes 0 (1 standard drink = 0.6 oz pur e alcohol) social Inadequate Housing Answer Date Recorded Social Determinants: Housing (Overall Score Help er) 0 09/25/2021 Interpersonal Safety Answer Date Record ed How often does anyone, [place]dom[place] matta family and friends, physically hurt you? Never 06/11/2025 How often does anyone, [place] family and friends, insult or talk down to you? Never 06/11/2025 How often does anyone, [place] family and friends, threaten you with harm? Never 06/11/2025 How often does anyone, [place] mat[place] family and friends, scream or curse at you? 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 Gender Identity Not on file Sexual Orientation Not on file documented as of this encounter Last Filed Vital Signs Vital Sign Reading Time Taken Comments Blood Pressure 168/93 06/11/2025 6:33 PM CDT Pulse 90 06/11/2025 6:33 PM CDT Temperature 37.2 C (99 F) 06/11/2025 4:58 PM CDT Respiratory Rate 20 06/11/2025 6:33 PM CDT Oxygen Saturation 99% 06/11/2025 6:33 PM CDT Inhaled Oxygen Concentration - - Weight 79.4 kg (175 lb 0.7 oz) 06/11/2025 4:58 P M CDT Height 167.6 cm (5' 6) 06/11/2025 4:58 PM CDT Body Mass Index 28.25 06/11/2025 4:58 PM CDT documented in this encounter Mental Status * Question Answer Entry Date Author Orientation Oriented to person;O riented to place;Oriented to time 06/11/2025 5:06 PM CDT Tatum Iyer RN documented in this encounter Discharge Instructions * Discharge Instructions* Ziyad Adan MD - 06/11/2025 6:57 PM CDT Ice hip You will receive a phone call to make an appointment with Dr. Montejo. For worsening pain, fever, chills, inability to place any weight on your left leg, return to this ER for recheck. * Attachments The following attachments cannot be sent through Care Everywhere. * Osteoarthritis, Living with (Northern Irish) * Osteoarthritis (Northern Irish) documented in this encounter Medications at Time of Discharge omeprazole (PriLOSEC) 40 MG capsule Take 40 mg by mouth daily. cyclobenzaprine (FLEXERIL) 10 MG tablet Take 1 tablet by mouth 3 times daily as needed for Muscle spasms. 15 tablet 03/26/2024 lidocaine (LIDOCARE) 4 % patch Place 1 patch onto the skin every 24 hours. 10 patch 02/03/2024 HYDROcodone-acet aminophen (NORCO) 5-325 MG per tablet TAKE 1 TO 2 TABLETS BY MOUTH THREE TIMES DAILY NEEDED FOR PAIN. MAXIMUM 5 TABLET / 24 HOUR 09/19/2023 clindamycin (CLINDAGEL) 1 % gel clindamycin 1 % topical gel gabapentin (NEURONTIN) 300 MG capsule gabapentin 300 mg capsule methylPREDNISolo ne (MEDROL DOSEPAK) 4 MG tablet follow package directions 21 tablet 03/17/2025 diazePAM (VALIUM) 5 MG tablet Take 1 tablet by mouth every 6 hours as needed for Muscle spasms. 10 tablet 03/17/2025 predniSONE (DELTASONE) 50 MG tablet Take 1 tablet by mouth daily. 5 tablet 03/01/2025 1:26 PM CDT 03/01/2025 moxifloxacin (VIGAMOX) 0.5 % ophthalmic solution Place 1 drop into both eyes in the morning and 1 drop at noon and 1 drop in the evening FOR 7 DAYS 3 mL 03/01/2025 1:26 PM CDT 03/01/2025 cyclobenzaprine (FLEXERIL) 5 MG tablet 11/10/2023 naproxen (NAPROSYN) 500 MG tablet Take 1 tablet by mouth in the morning and 1 tablet in the evening. Take with meals. 10 tablet 03/26/2024 Probiotic Product (Florajen3) capsule Take 1 capsule by mouth in the morning and 1 capsule in the evening. 30 capsule 10/09/2023 documented as of this encounter Discharge Disposition Disposition Code Departure Means Destination Comment s Home or Self Care (Not Going To [facility] r [facility] Provider) documented in this encounter ED Notes * Ziyad Adan MD - 06/11/2025 5:12 PM CDT Patient : Penelope Roberts Age: [age] year old Sex: female Encounter Date: 06/11/2025 DIAGNOSTIC IMPRESSION(S) 1. Left hip pain 2. Arthritis of left hip HISTORY History of Present Illness This is a female patient with a history of arthritis presenting with hip pain. She reports experiencing hip pain that has progressively worsened over the past four days. The painis severe enough to disrupt her sleep and cause nausea, leading to a decreased appetite. She also experiences numbness and tingling in her toes upon standing, and a shooting pain that radiates down to her knee when she moves. Her knee is swollen and has a burning sensation. She reports no back pain. She has tried using ice, which provides temporary relief, but the effect does not last. She has also taken Motrin, Tylenol, and Vicodin, but these have not alleviated her symptoms. She took Motrin at 10:00 AM today. She reports no recent falls but mentions a slight twist while running. Her husbandrecommended that she seek medical care. She has previously consulted an clinical specialist who recommended a hip replacement within five years. This consultation took place about a year and a halfago. 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 She has arthritis in all her joints. She had a bone graft from her hip to her neck, after which she started experiencing hip problems. She was diagnosed with two bone spurs and arthritis in her back. PAST SURGICAL HISTORY: Bone graft from hip to neck Allergies Allergen Reactions Codeine Nausea & Vomiting Current Facility-Administered Medications Medication levonorgestrel (MIRENA) (52 MG) 20 MCG/DAY intrauterine device 52 mg Current Outpatient Medications Medication Sig methylPREDNISolone (MEDROL DOSEPAK) 4 MG tablet follow package directions diazePAM (VALIUM) 5 MG tablet Take 1 tablet by mouth every 6 hours as needed for Muscle spasms. predniSONE (DELTASONE) 50 MG tablet Take 1 tablet by mouth daily. moxifloxacin (VIGAMOX) 0.5 % ophthalmic solution Place 1 drop into both eyes in the morning and 1 drop at noon and 1 drop in the evening FOR 7 DAYS sertraline (ZOLOFT) 50 MG tablet Take 1 tablet by mouth daily. omeprazole (PriLOSEC) 40 MG capsule Take 40 mg by mouth daily. cyclobenzaprine (FLEXERIL) 5 MG tablet naproxen (NAPROSYN) 500 MG tablet Take 1 tablet by mouth in the morning and 1 tablet in the evening. Take with meals. (Patient not taking: Reported on 03/01/2025) cyclobenzaprine (FLEXERIL) 10 MG tablet Take 1 tablet by mouth 3 times daily as needed for Muscle spasms. lidocaine (LIDOCARE) 4 % patch Place 1 patch onto the skin every 24 hours. Probiotic Product (Florajen3) capsule Take 1 capsule by mouth in the morning and 1 capsule in the evening. HYDROcodone-acetaminophen (NORCO) 5-325 MG per tablet TAKE [...] surgery procedure unlisted Treat ectopic preg,rmv tube/ovary 2010 Family History Problem Relation Age of Onset Heart disease Father Diabetes Father Social History Tobacco Use Smoking status: Every Day Current packs/day: 1.00 Types: Cigarettes Passive exposure: Past Smokeless tobacco: Never Vaping Use Vaping status: never used Substance Use Topics Alcohol use: Yes Comment: social Drug use: Not Currently REVIEW OF SYSTEMS Pertinent systems were reviewed and pertinent positive and negative items were documented in the HPI. PHYSICAL EXAM Physical Exam ED Triage Vitals [06/11/25 5793] ED Triage Vitals Group Temp 99 ??F (37.2 ??C) Heart Rate 92 Resp 20 BP (!) 129/96 SpO2 99 % EtCO2 mmHg Height 5' 6 (1.676 m) Weight 175 lb 0.7 oz (79.4 kg) Weight Scale Used Standing scale BMI (Calculated) 28.25 IBW/kg (Calculated) 59.3 Physical Exam Vitals and nursing note reviewed. Constitutional: General: She is awake. She is not in acute distress (appears uncomfortable). Appearance: She is not ill-appearing, toxic-appearing or diaphoretic. HENT: Head: Normocephalic and atraumatic. Right Ear: Hearing normal. Left Ear: Hearing normal. Nose: Nose normal. Eyes: General: Lids are normal. Vision grossly intact. Gaze aligned appropriately. Right eye: No discharge. Left eye: No discharge. Conjunctiva/sclera: Conjunctivae normal. Comments: No injection Cardiovascular: Rate and Rhythm: Normal rate. Pulmonary: Effort: Pulmonary effort is normal. No respiratory distress. Comments: Speaks in full sentences Abdominal: General: There is no distension. Musculoskeletal: Cervical back: Neck supple. No rigidity. Neurological: Mental Status: She is alert and oriented to person, place, and time. Psychiatric: Attention and Perception: Attention and perception normal. Mood and Affect: Mood and affect normal. Speech: Speech normal. Behavior: Behavior normal. Behavior is cooperative. Thought Content: Thought content normal. Cognition and Memory: Cognition and memory normal. Judgment: Judgment normal. PROCEDURE(S) Procedures LAB RESULTS No results found for this visit on 06/11/25. RADIOLOGY RESULTS Imaging Results XR HIP 2 VIEWS LEFT AND PELVIS (Final result) Result time 06/11/25 17:30:21 Final result Impression: IMPRESSION: Degenerative changes of the visualized lower lumbar spine, sacroiliac joints, hips and pubic symphysis. Sacrum is partially obscured by stool and bowel gas. No definitive acute fracture or malalignment. IUD is present. MRI can be considered for evaluation of occult injury or internal derangement, if necessary. Electronically Signed by: Yrn Ellis MD Signed on: 06/11/2025 5:30 PM Created on Workstation ID: [id number] Signed on Workstation ID: [id number] Narrative: EXAM: XR HIP 2 VIEWS LEFT AND PELVIS COMPARISONS: 09/14/2023. HISTORY: chronic arthritis; increased pain from twisting injury. ED MEDICATIONS ED Medication Orders (From admission, onward) Ordered Start Status Ordering Provider 06/11/25 1842 06/11/25 1843 HYDROcodone-acetaminophen (NORCO) 10-325 MG per tablet 1 tablet ONCE Last JAN action: Given ZIYAD ADAN 06/11/25 1721 06/11/25 1722 ketorolac (TORADOL) injection 15 mg ONCE Last JAN action: Given ZIYAD ADAN ED COURSE Vitals: 06/11/25 1658 06/11/25 1828 06/11/25 1833 BP: (!) 129/96 (!) 143/91 (!) 168/93 BP Location: RUE - Right upper extremity Patient Position: Sitting/High-Dickerson's Pulse: 92 93 90 Resp: 20 20 Temp: 99 ??F (37.2 ??C) TempSrc: Oral SpO2: 99% 99% 99% Weight: 79.4 kg (175 lb 0.7 oz) Height: 5' 6 (1.676 m) LMP: 02/24/2025 ED Course as of 06/18/25 0209 TueJun 11, 2025 171 Left Hip X-ray (09/2023): IMPRESSION: 1. No acute fracture or significant degenerative changes. [JK] 1732 Independent review of x-ray pending radiology read: X-ray looks like mild DJD. No fracture [JK] 1734 XR HIP 2 VIEWS LEFT AND PELVIS IMPRESSION: Degenerative changes of the visualized lower lumbar spine, sacroiliac joints, hips and pubic symphysis. Sacrum is partially obscured by stool and bowel gas. No definitive acute fracture or malalignment. IUD is present. MRI can be considered for evaluation of occult injury or internal derangement, if necessary. [JK] ED Course User Index [JK] Ziyad Adan MD Consults Medical Decision Making Assessment & Plan Initial Assessment: Significant hip pain began four days ago after a minor twist while running. Symptoms include numbness and tingling in toes, shooting pain down to knee, swelling, and burning sensation. [id number] medications and Vicodin have not provided relief. History of arthritis and bone spurs. Differential Diagnosis: - Hip arthritis: History of arthritis, pain, and swelling. X-rays to assess current state. - Bone spurs: History of bone spurs, pain, and numbness. Referral to orthopedic doctor for further evaluation. - Nerve impingement: Numbness, tingling, and shooting pain. Consider if symptoms persist despite initial treatment. ED Course: - X-rays ordered to assess the current state of the hip. - IV ketorolac ordered - PDMP checked: Uvalda 5 mg tabs #150 every month prescribed for the patient's chronic pain - XR: DJD LS spine, SI joints, hips. Non acute. - Will treat with NSAIDs. Patient has norco at home for chronic pain management - F/U PCP - ED return precautions. CRITICAL CARE No Critical Care DISPOSITION Clinical Impression and Diagnosis 2:11 AM ED Diagnoses Diagnosis Comment Associated Orders Final diagnoses Left hip pain -- SERVICE TO ORTHOPEDICS Arthritis of left hip -- SERVICE TO ORTHOPEDICS Follow Up: [facility] Emergency Services [address] [facility] [phone] If symptoms worsen Mahnaz Montejo MD [address] [facility] [address] Summary of your Discharge Medications You have not been prescribed any medications. Pt is discharged to home/self care in stable condition. Discharge 06/11/2025 6:56 PM [place] discharge to home/self care. Ziyad Adan MD 06/18/25 0211 * Tatum Iyer RN - 06/11/2025 4:55 PM CDT Pt arrives via private vehicle for evaluation of L hip pain; she was running after her nephew and feels she twisted something; she has bone spurs and arthritis. Has had issues on and off with the hip, says she needs a replacement eventually. documented in this encounter Plan of Treatment Upcoming Encounters Date Type Department Care Team (Late st Contact Info) Description 07/22/2025 4:00 PM CDT Office Visit [facility] [address] [place] [phone] Ziyad Adan MD [address] [place] [address] Mahnaz Montejo MD [address] [place] [address] Scheduled Referrals Name Type Priority Associated Diagnoses Orde r Schedule SERVICE TO ORTHOPEDICS Referral Routine Left hip pain Arthritis of left hip Ordered: 06/11/2025 documented as of this encounter Procedures Procedure Name Priority Date/Time Associated Diagnosis Comments XR HIP 2 VIEWS LEFT AND PELVIS STAT 06/11/2025 5:23 PM CDT documented in this encounter Results * XR HIP 2 VIEWS LEFT AND PELVIS (06/11/2025 5:23 PM CDT) Anatomical Region Laterality Modality Hip Left Digital Radiogra phy 06/11/2025 5:29 PM CDT Impressions 06/11/2025 5:30 PM CDT IMPRESSION: Degenerative changes of the visualized lower lumbar spine, sacroiliac joints, hips and pubic symphysis. Sacrum is partially obscured by stool and bowel gas. No definitive acute fracture or malalignment. IUD is present. MRI can be considered for evaluation of occult injury or internal derangement, if necessary. Electronically Signed by: Yrn Ellis MD Signed on: 06/11/2025 5:30 PM Created on Workstation ID: [id number] Signed on Workstation ID: [id number] Narrative 06/11/2025 5:30 PM CDT EXAM: XR HIP 2 VIEWS LEFT AND PELVIS COMPARISONS: 09/14/2023. HISTORY: chronic arthritis; increased pain from twisting injury. Procedure Note Yrn Ellis MD - 06/11/2025 EXAM: XR HIP 2 VIEWS LEFT AND PELVIS COMPARISONS: 09/14/2023. HISTORY: chronic arthritis; increased pain from twisting injury. IMPRESSION: Degenerative changes of the visualized lower lumbar spine, sacroiliac joints, hips and pubic symphysis. Sacrum is partiallyobscured by stool and bowel gas. No definitive acute fracture or malalignment.IUD is present. MRI can be considered for evaluation of occult injury or internal derangement, if necessary. Electronically Signed by: Yrn Ellis MD Signed on: 06/11/2025 5:30 PM Created on Workstation ID: [id number] Signed on Workstation ID: [id number] Ziyad Adan MD IMG XR PROCEDURES Final Result documented in this encounter Visit Diagnoses Diagnosis Left hip pain- Primary Pain in joint, pelvic region and thigh Arthritis of left hip documented in this encounter Administered Medications Inactive Administered Medications - up to 1 most recent administrations Medication Order MAR Action Action Date Dose Rate Site HYDROcodone-acetaminophen (NORCO) 10-325 MG per tablet 1 tablet 1 tablet ONCE, Oral, On Tue06/11/25 at 1843, For 1 dose, Maximum of 4,000 mg acetaminophen per 24 hours from ALL sources. Given 06/11/2025 6:48 PM CDT 1 tablet ketorolac (TORADOL) injection 15 mg 15 mg ONCE, Intramuscular, On Tue06/11/25 at 1722, For 1 dose, Do not administer with other NSAIDs. If IV, give over at least 15 seconds. Ketorolac therapy maximum allowed duration: 5 days. If an IV and an oral medication are ordered PRN for the same pain severity, administer IV only if patient is NPO/if oral is not tolerated. * Protect from light * Given 06/11/2025 5:46 PM CDT 15 mg Arm, Left documented in this encounter Active and Recently Administered Medications Times are shown in CDT. Scheduled Medication Order 06/09/2025 06/10/2025 06/11/2025 HYDROcodone-acetaminophen (NORCO) 10-325 MG per tablet 1 tablet (COMPLETED) 1 tablet ONCE, Oral, On Tue06/11/25 at 1843, For 1 dose, Maximum of 4,000 mg acetaminophen per 24 hours from ALL sources. 184 (Given - Provid er: Tatum Iyer RN) ketorolac (TORADOL) injection 15 mg (COMPLETED) 15 mg ONCE, Intramuscular, On Tue06/11/25 at 1722, For 1 dose, Do not administer with other NSAIDs. If IV, give over at least 15 seconds. Ketorolac therapy maximum allowed duration: 5 days. If an IV and an oral medication are ordered PRN for the same pain severity, administer IV only if patient is NPO/if oral is not tolerated. * Protect from light * 174 (Given - Provid er: Tatum Iyer RN) documented in this encounter Orders Medications Ordered That Benson ht Not Have Been Administered Count Last Ordered Date First Ordered Date ketorolac (TORADOL) injection 15 mg 1 06/11 documented in this encounter Care Teams Explosives Mixer Operator Relationship Specialty Start Date End Date Pcp, No PCP - General 09/14/23 Mahnaz Montejo MD Orthopaedic Surgery Sports Medicine 04/10/24 documented as of this encounter
[2025-07-12] VITALS (8 sets, daily range): BP systolic 149–159; BP diastolic 96–98; PULSE 76–87; RESP 18; TEMP 36.5; O2SAT 98–100; BMI 28.7
--- OUTSIDE RECORDS SUMMARY | 2025-07-12 11:18 | XMS_ITS | Referral Summary ---
Author Organization [facility] Care Address [id number] [place] [address] Phone Care Team Providers Care Retreader Name Role Phone Provider, No Pcp-No Referring Primary Care Provi clayton Unavailable Allergies No known active allergies Medications gabapentin (NEURONTIN) 300 MG capsule Take 300 mg by mouth 3 (Three) Times Daily. Active omeprazole (PRILOSEC) 40 MG capsule Take 40 mg by mouth Daily. Active diazePAM (VALIUM) 2 MG tabletIndicatio ns:muscle spasm Take 1 tablet by mouth Every 8 (Eight) Hours As Needed for up to 3 days for Anxiety. 6 tablet 07/14/2022 Active HYDROcodone-spencer taminophen (NORCO) 5-325 mg per tablet TAKE 1 TO 2 TABLETS BY MOUTH THREE TIMES DAILY NEEDED FOR PAIN. MAXIMUM 5 TABLET / 24 HOUR 11/10/2022 Active lamoTRIgine 100 mg TR24 Take by mouth Daily. 11/25/2022 Active cloNIDine HCL (CATAPRES) 0.1 MG tablet Take by mouth Daily. 11/25/2022 Active oxyCODONE-aceta minophen (PERCOCET) 5-325 mg per tablet Take 1-2 tablets by mouth Every 4 (Four) Hours As Needed Maximum 10 tablets daily. for Pain. 20 tablet 12/06/2022 Active meloxicam (MOBIC) 7.5 MG tablet Take 1 tablet by mouth Daily As Needed for Pain. 20 tablet 12/06/2022 Active Active Problems No known active problems Social History Tobacco Use Types Packs/Day Years Used Date Smoking Tobacco: Every Day Cigarettes Smokeless Tobacco: Never Tobacco Cessation:Ready to Q uit: Not Asked; Counseling Given: Not Answered Alcohol Use Standard Drinks/Week Comments Not Currently 0 (1 standard drink = 0.6 oz pur e alcohol) Comments No Sex and Gender Information Value Date Recorded Sex Assigned at Not on file Legal Sex Female 7:15 PM CDT Gender Identity Not on file Sexual Orientation Not on file Last Filed Vital Signs Vital Sign Reading Time Taken Comments Blood Pressure 147/88 02/02/2023 10:19 PM CDT Pulse 79 02/02/2023 10:19 PM CDT Temperature 36.6 C (97.8 F) 02/02/2023 7:43 PM CDT Respiratory Rate 18 02/02/2023 10:19 PM CDT Oxygen Saturation 98% 02/02/2023 10:19 PM CDT Inhaled Oxygen Concentration - - Weight 98.4 kg (217 lb) 02/02/2023 7:43 PM CDT Height 167.6 cm (5' 6) 02/02/2023 7:43 PM CDT Body Mass Index 35.02 02/02/2023 7:43 PM CDT Plan of Treatment Not on file Insurance Care Teams Retreader Relationship Specialty Start Date End Date NO PCP-NO REFERRING PROVIDER PCP - General 12/06/22
--- OUTSIDE RECORDS SUMMARY | 2025-07-12 11:18 | XMS_ITS | Encounter Summary ---
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 Gender Identity Not on file Sexual Orientation Not on file documented as of this encounter Mental Status * Question Answer Entry Date Author Orientation Oriented to person;O riented to place;Oriented to time 06/11/2025 5:06 PM CDT Tatum Iyer RN documented in this encounter Plan of Treatment Upcoming Encounters Date Type Department Care Team (Late st Contact Info) Description 07/22/2025 4:00 PM CDT Office Visit [facility] [address] [place] [phone] Ernie Adan MD [address] [place], [place] [phone] Mahnaz Montejo MD [address] [place], [place] [phone] documented as of this encounter Visit Diagnoses Not on filedocumented in this encounter Care Teams Filter Cloth Maker Relationship Specialty Start Date End Date Pcp, No PCP - General 09/14/23 Mahnaz Montejo MD Orthopaedic Surgery Sports Medicine 04/10/24 documented as of this encounter
--- OUTSIDE RECORDS SUMMARY | 2025-07-12 11:18 | XMS_ITS | Clinical Summary ---
Author Organization [facility] Address [address] [place] [address] Care Team Providers Care Cobbler Sole Name Role Phone Pcp, No Primary Care Provider Mahnaz Beckman MD Unavailable Allergies Active Allergy Reactions Criticality Noted Date Comments Codeine Nausea & Vomiting High 04/21/2023 Medications clindamycin (CLINDAGEL) 1 % gel clindamycin 1 % topical gel Active gabapentin (NEURONTIN) 300 MG capsule gabapentin 300 mg capsule Active HYDROcodone-spencer taminophen (NORCO) 5-325 MG per tablet TAKE 1 TO 2 TABLETS BY MOUTH THREE TIMES DAILY NEEDED FOR PAIN. MAXIMUM 5 TABLET / 24 HOUR 3 Active Probiotic Product (Florajen3) capsule Take 1 capsule by mouth in the morning and 1 capsule in the evening. 30 capsule 3 Active lidocaine (LIDOCARE) 4 % patch Place 1 patch onto the skin every 24 hours. 10 patch 4 Active naproxen (NAPROSYN) 500 MG tablet Take 1 tablet by mouth in the morning and 1 tablet in the evening. Take with meals. 10 tablet 4 Active Additional Information Patient not taking.Reported on 03/01/2025 cyclobenzaprine (FLEXERIL) 10 MG tablet Take 1 tablet by mouth 3 times daily as needed for Muscle spasms. 15 tablet 4 Active omeprazole (PriLOSEC) 40 MG capsule Take 40 mg by mouth daily. Active cyclobenzaprine (FLEXERIL) 5 MG tablet 4 Active sertraline (ZOLOFT) 50 MG tablet Take 1 tablet by mouth daily. 90 tablet 2 4 Active predniSONE (DELTASONE) 50 MG tablet Take 1 tablet by mouth daily. 5 tablet 03/01/2025 1:26 PM CDT 5 Active moxifloxacin (VIGAMOX) 0.5 % ophthalmic solution Place 1 drop into both eyes in the morning and 1 drop at noon and 1 drop in the evening FOR 7 DAYS 3 mL 03/01/2025 1:26 PM CDT 5 Active methylPREDNISol one (MEDROL DOSEPAK) 4 MG tablet follow package directions 21 tablet 5 Active diazePAM (VALIUM) 5 MG tablet Take 1 tablet by mouth every 6 hours as needed for Muscle spasms. 10 tablet 5 Active Hospital, Clinic, or Other Facility Administered Medication Ordered Dose Route Frequency Start Date End Date Status levonorgestrel (MIRENA) (52 MG) 20 MCG/DAY intrauterine device 52 mgIndications:Encounter for insertion of Mirena IUD 52 mg IU EVERY 8 YEARS 02/14/2024 Active Active Problems Problem Noted Date Diagnosed Date Presence of intrauterine contraceptive device (I UD) 02/26/2024 Overview (02/26/2024): Mirena IUD (Lot: [id number]; Exp: ) inserted 02/14/2024; due for removal by 02/14/2032 History of bladder cancer 02/26/2024 PMDD (premenstrual dysphoric disorder) 4 Overview (02/26/2024): sertraline Encounters Date Type Department Care Team Description 06/11/2025 6:24 PM CDT - 06/11/2025 7:03 PM CDT Emergency [facility] Emergency Services [facility] [place] [address] Ernie Adan MD Baetz, Sydnie, Rehana Augustin RN Left hip pain (Primary Dx); Arthritis of left hip Discharge Disposition: Home or Self Care 06/11/2025 Travel from Last 3 Months Surgical History [...] on file Legal Sex 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 Gender Identity Not on file Sexual Orientation Not on file Obstetrics History Para Term [...] Mass Index 28.25 06/11/2025 4:58 PM CDT Plan of Treatment Upcoming Encounters Date Type Department Care Team (Late st Contact Info) Description 07/22/2025 4:00 PM CDT Office Visit [facility] [address] [place] [address] Ernie Adan MD [address] [place] [address] Mahnaz Montejo MD [address] [place] [address] Health Maintenance Due Date Last Done Comments A1c for Diabetes Screening 1975 COVID-19 Vaccine (#1) 1980 Depression Screening 1987 Hepatitis B Vaccine (1 of 3 - 19+ 3-dose series) 1994 Pneumococcal Vaccine 0-49 (1 of 2 - PCV) 1994 Breast Cancer Screening 2015 CT Colonography 2020 Cologuard 2020 Colonoscopy 2020 Colorectal Cancer Screening 2020 Fecal Occult Blood 2020 Sigmoidoscopy 2020 Influenza Vaccine (#1) 2025 DTaP/Tdap/Td Vaccine (2 - Td or Tdap) 08/19/2025 08/19/2015 Cervical Cancer Screening 01/19/2029 HPV/Cotest 01/19/2029 01/20/2024 Pap Smear 01/19/2029 01/20/2024 HPV Vaccine (No Doses Required) Completed Hepatitis A Vaccine Aged Out No longe r eligible based on patient's age to complete this topic Meningococcal Serogroup B Vaccine Aged Out No longer eligible based on patient's age to complete this topic Meningococcal Vaccine Aged Out No sylvia blake eligible based on patient's age to complete this topic Medical Devices Implanted Type Area Editor Trade Journal Device Identifier Shelf Expiration Date Model / Serial / Lot Contraceptive -02/14/2024 Implanted:Qty : 1 on 02/14/2024 by Edie Mann MD Contraceptive Cervix 04/06/2026 [id number] / / [id number] Description:Mirena IUD Procedures Procedure Name Priority Date/Time Associated Diagnosis Comments XR HIP 2 VIEWS LEFT AND PELVIS STAT 06/11/2025 5:23 PM CDT PAP ORDER Routine 01/20/2024 3:30 PM CDT Screening for malignant neoplasm of the cervix HPV, HIGH RISK Routine 01/20/2024 3:30 PM CDT Screening for malignant neoplasm of the cervix from Last 3 Months or Most Recently Relevant to Health Maintenance Results * XR HIP 2 VIEWS LEFT [...] ID: [id number] Signed on Workstation ID: [id number] Ernie Adan MD IMG XR PROCEDURES Final Result * Pap Test (01/20/2024 3:30 PM CDT) Case Report Gynecological Cytology Case: [id number] Authorizing Provider: Edie Mann MD Collected: 01/20/2024 1530 Ordering Location: [facility] Received: 01/20/2024 [facility] [address] First Screen: Danyelle Reyna, CT Pathologist: Christy Esqueda MD Specimen: ThinPrep Pap Test, Cervix 01/25/2024 1:53 PM CDT [facility] Interpretation Negative for intraepithelial lesion or malignancy. 01/25/2024 1:53 PM CDT [facility] at 1353 CDT Specimen Adequacy Satisfactory for evaluation, endocervical/underwood sformation zone component present. 01/25/2024 1:53 PM CDT [facility] Other Findings Hyperkeratosis. Case reviewed by the pathologist. 01/25/2024 1:53 PM CDT [facility] Clinical Information 01/25/2024 1:53 PM CDT [facility] Pap Educational Note The Pap test is [...] current consensus management guidelines, refer to the [place] Society for Colposcopy and Cervical Pathology website at www.asccp.org First Screen performed at: [facility] [address] [facility] [id number] 01/25/2024 1:53 PM CDT [facility] [employer] CERVIX UTERI STRUCTURE / Unknown 01/20/2024 3:30 PM CDT 01/20/2024 4:13 PM CDT us Edie Mann MD [facility] CYTOLOGY ORDERABLE S Final Result [facility] [address] [id number] * HPV, High Risk (01/20/2024 3:30 PM CDT) High Risk HPV Negative Negative [facility] 01/25/2024 1:53 PM CDT [facility] Disclaimer The APTIMA HPV Assay is an [...] FDA approved for this assay using the PANTHER System. The Aptima High Risk HPV assay [...] for testing on vaginal and/or rectal specimens. [employer] has internally validated these specimen sources. The expected normal reference range is negative. [facility] 01/25/2024 1:53 PM CDT [facility] [employer] CERVIX UTERI STRUCTURE / Unknown 01/20/2024 3:30 PM CDT 01/22/2024 12:36 PM CDT us Edie Mann MD [facility] MOLEC DIAGN ORD Fi nal Result Performing Organization Address City/State/[facility] Co de Phone Number [facility] [address] [phone], [facility] from Last 3 Months or Most Recently Relevant to Health Maintenance Insurance ANTHEM/BCBS [facility] Address: [address] [place] [address] -SENT INSURANCE * Guarantor: KATLYN ESCALANTE Account Type Relation to Patient Date of Phone Billing Address Occupational Medicine Employer [address] [place] [address] Care Teams Cobbler Sole Relationship Specialty Start Date End Date Pcp, No PCP - General 09/14/23 Mahnaz Montejo MD Orthopaedic Surgery Sports Medicine 04/10/24
--- OUTSIDE RECORDS SUMMARY | 2025-07-12 11:18 | XMS_ITS | Clinical Summary ---
Author Organization [facility] Care Address [id number] [place] [address] Phone Care Team Providers Care Court Manager Name Role Phone Provider, No Pcp-No Referring [...] 02/02/2023 7:43 PM CDT Plan of Treatment Health Maintenance Due Date Last Done Comments Breast Cancer Screening 1975 Lipid Profile Blood Test (No Outreach) 1975 Medication Monitoring B12 La b (No Outreach) 1975 Medication Monitoring Hg/Hem atocrit Lab (No Outreach) 1975 Medication Monitoring Magnes ium Lab (No Outreach) 1975 Medication Monitoring eGFR L ab (No Outreach) 1975 MMR Vaccine (No Outreach) (1 of 1 - Standard series) 1976 Tetanus Vaccine 1986 Varicella Vaccine (No Outrea ch) (1 of 2 - 13+ 2-dose series) 1988 Human Immunodeficiency Virus (HIV) Screening 1991 Hepatitis B Vaccine (No Outr each) (1 of 3 - 19+ 3-dose series) 1994 Pap Smear 1996 Cervical Cancer Screening 2005 HPV/Cotest 2005 CT Colonography 2020 Colonoscopy 2020 Colorectal Cancer Screening 2020 Fecal DNA Test 2020 Fecal Occult Blood Test 2020 Sigmoidoscopy 2020 COVID-19 Vaccine (No Outreac h) () 07/08/2025 Influenza Vaccine (#1) 2025 Zoster Recombinant Vaccine (Shingrix) (1 of 2) 2025 RSV Vaccine (1 - 1-dose 75+ series) 2050 HIB Vaccine Aged Out No longer eligi ble based on patient's age to complete this topic HPV Vaccine Aged Out No longer eligi ble based on patient's age to complete this topic Hepatitis A Vaccine (No Outreach) Aged Out No longer eligible based on patient's age to complete this topic Inactivated Polio (IPV) Vaccine Aged Out No longer eligible based on patient's age to complete this topic Meningococcal ACWY vaccine Aged Out N o longer eligible based on patient's age to complete this topic Meningococcal B Vaccine Aged Out No l onger eligible based on patient's age to complete this topic Pneumococcal Vaccine: Routin e and At-Risk Aged Out No longer eligible b ased on patient's age to complete this topic Rotavirus Vaccine Aged Out No longer eligible based on patient's age to complete this topic Insurance Care Teams Court Manager Relationship Specialty Start Date End Date NO PCP-NO REFERRING PROVIDER PCP - General 12/06/22
--- OUTSIDE RECORDS SUMMARY | 2025-07-12 11:19 | XMS_ITS | Encounter Summary ---
Author Organization [facility] Address [address] [place] [address] Care Team Providers Care Steam Cleaning Machine Operator Name Role Phone Cmh, Non Physicians Primary Care Provider [phone] Encounter Details Date Type Department Care Team (Late st Contact Info) Description 09/28/2024 Digital Care Management [address] [address] Interface, Embedded_Docs_In [address] [address] Social History Tobacco Use Types Packs/Day Years Used Date Smoking Tobacco: Unknown PHQ-2 Answer Date Recorded Patient Health Questionnaire-2 Score 0 09/28/2024 PHQ-9 Answer Date Recorded Patient Health Questionnaire-2 Score 0 09/28/2024 Comments Unknown Sex and Gender Information Value Date Recorded Sex Assigned at Not on file Legal Sex Female 11:06 PM CDT Gender Identity Not on file Sexual Orientation Not on file documented as of this encounter Functional Status * Over the past 2 weeks, how often have you been bothered by any of the following problems? 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 Maged Madrid MA Feeling down, depressed, or hopeless Not at all 09/28/2024 3:13 PM Maged Panchal MA Patient Health Questionnaire-2 Score 0 09/28/2024 3:13 PM GRAVURE PRINTING MACHINIST Nicole [place] MA documented as of this encounter Plan of Treatment Not on file documented as of this encounter Visit Diagnoses Not on filedocumented in this encounter Additional Health Concerns Assessment Noted Time PHQ-2 Depression Total Score: 0 09/28/20 3:13 PM GRAVURE PRINTING 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
--- OUTSIDE RECORDS SUMMARY | 2025-07-12 11:19 | XMS_ITS | Clinical Summary ---
Author Organization [facility] Address [address] [place] [address] Care Team Providers Care Utilities And Maintenance Supervisor Name Role Phone Cmh, Non Physicians Primary Care Provider Allergies Active Allergy Reactions Criticality Noted Date Comments Codeine GI - nausea and/or vomiting High 04/21/20 23 Medications albuterol HFA 108 (90 Base) MCG/ACT inhaler Inhale 2 puffs by mouth every 4 hours as needed. 4 Active cyclobenzaprine (FLEXERIL) 10 MG tablet Take 10 mg by mouth 3 times daily as needed. 4 Active gabapentin (NEURONTIN) 300 MG capsule 600 mg 3 times daily. 900 mg Active omeprazole (PRILOSEC) 40 MG delayed release capsule Take 40 mg by mouth daily. Active sertraline (ZOLOFT) 50 MG tablet Take 50 mg by mouth daily. Active levonorgestrel (MIRENA) 20 MCG/DAY intrauterine device Administer 52 mg. 4 Active HYDROcodone/aceta minophen (NORCO) 5-325 MG tablet Take 1 tablet by mouth every 4 hours as needed. Active Active Problems Problem Noted Date Diagnosed Date Anxiety 09/28/2024 Fatigue 09/28/2024 GERD (gastroesophageal reflux disease) Hidradenitis suppurativa 09/28/2024 History of cervical spinal arthrodesis HTN (hypertension) 09/28/2024 Hypertrophied anal papilla 09/28/2024 Insomnia 09/28/2024 Malignant neoplasm of urinary bladder 09/28/2024 Menorrhagia 09/28/2024 Moderately severe depression 09/28/2024 Cervical arthritis 09/28/2024 Neck muscle spasm 09/28/2024 Chronic pain 09/28/2024 Fibromyalgia 09/28/2024 Neck pain 09/28/2024 Obesity with body mass index 30 or greater 09/28 Polycystic ovaries 09/28/2024 Right cervical radiculopathy 09/28/2024 Sebaceous cyst of right axilla 09/28/2024 Tobacco abuse 09/28/2024 Vitamin D deficiency 09/28/2024 Personal history of malignant neoplasm of bladde r 02/26/2024 PMDD (premenstrual dysphoric disorder) Overview (09/28/2024): sertraline Presence of intrauterine contraceptive device (I UD) 02/26/2024 Overview (09/28/2024): Mirena IUD (Lot: [id number]; Exp: ) inserted 02/14/2024; due for removal by 02/14/2032 Family History Medical History Relation Name Comments Arthritis Brother Diabetes Father Heart attack Father Diabetes Maternal Grandmother Arthritis Mother Diabetes Paternal Grandmother Relation Name Status Comments Brother Father Alive Maternal Grandfather never met Maternal Grandmother Mother Alive Paternal Grandfather Paternal Grandmother Social History Tobacco Use Types Packs/Day Years Used Date Smoking Tobacco: Unknown Tobacco Cessation:Counseling Given: Not Answered PHQ-2 Answer Date Recorded Patient Health Questionnaire-2 Score 0 09/28/2024 PHQ-9 Answer Date Recorded Patient Health Questionnaire-2 Score 0 09/28/2024 Comments Unknown Sex and Gender Information Value Date Recorded Sex Assigned at Not on file Legal Sex Female 11:06 PM CDT Gender Identity Not on file Sexual Orientation Not on file Last Filed Vital Signs Vital Sign Reading Time Taken Comments Blood Pressure 110/82 09/28/2024 3:37 PM 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 Pulse 94 09/28/2024 3:07 PM 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 Temperature 36.5 C (97.7 F) 09/26/2024 11:56 PM 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 Respiratory Rate 18 09/26/2024 11:56 PM 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 Oxygen Saturation 100% 09/28/2024 3:07 PM 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 Inhaled Oxygen Concentration - - Weight 83 kg (183 lb) 09/28/2024 3:07 PM 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 Height 167.6 cm (5' 6) 09/26/2024 11:56 PM 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 Body Mass Index 29.54 09/26/2024 11:56 PM 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 Plan of Treatment Health Maintenance Due Date Last Done Comments Breast Cancer Screening (Mammogram) 1975 CT Colonography 1975 Colonoscopy 1975 Colorectal Cancer Screening 1975 FIT-DNA 1975 FOBT / FIT 1975 HIV Screening 1975 Sigmoidoscopy 1975 Diabetes Screening 1993 Hepatitis C Screening 1993 Pap Smear 1993 Hepatitis B Vaccines (1 of 3 - 19+ 3-dose series) 1994 Cervical Cancer Screening 2005 HPV w/Reflex to Pap 2005 Lipid Panel 2020 COVID-19 Vaccine (2023-2 5 season) 2025 Seasonal Flu Immunization (#1) 07/08/2025 DTaP/Tdap/Td Vaccines (2 - T d or Tdap) 08/19/2025 08/19/2015 Depression Screening 09/28/2025 09/28/2024 Routine Physical 01/19/2026 01/20/2024 HIB Vaccines Aged Out No longer eligi ble based on patient's age to complete this topic Hepatitis A Vaccines Aged Out No long er eligible based on patient's age to complete this topic Meningococcal B Vaccine Aged Out No l onger eligible based on patient's age to complete this topic Meningococcal Vaccine Aged Out No sylvia blake eligible based on patient's age to complete this topic RSV Immunization <20 Months Aged Out No longer eligible based on patient's age to complete this topic Rotavirus Vaccines Aged Out No longer eligible based on patient's age to complete this topic Insurance [employer] Care Teams Utilities And Maintenance Supervisor Relationship Specialty Start Date End Date [facility], Non Physicians [id number] [place], [place] [id number] PCP - General 08/09/24
--- NOTE | 2025-07-12 11:29 | ED_ITS ---
HPI - General Adult General Chief complaint: Neck Injury/Pain Stated complaint: Neck Pain, Headace Time Seen by Provider: 07/12/25 11:21 History of Present Illness HPI narrative: pt here for chronic neck pain, feels this pain is causing her a headache for the last few days that goes up the back of her neck, tylenol, ibuprofen, and vicodin at home for pain, has appointment Tuesday with Josef for this but feels this cannot wait 49-year-old woman presenting to the emergency department with concern of increased severe neck and shoulder pain but particularly frontal headache. This has evolved over the last couple of nights. She is unable to sleep due to the discomfort. No rashes. She has felt hot but did not measure a fever. Does have a long history of chronic neck pain. Typically takes 5 [place] daily as prescribed by primary care provider. Reviewing records does show some pulses intermittently of Percocet. Last was in November (later I also see a singular script in March). Has been taking acetaminophen ibuprofen and her Vicodin. Is to follow up after this weekend, it is Tuesday today, with primary care provider. History is that of cervical spine arthrodesis in 2014. She is anticipating possible move and following up with pain clinic. Does not sound as though that is been squared away yet. Is finding that pain clinics she has inquired with are not taking new patients. As were discussing potential need for medication/medication options, she does, when asked, note that her daughter dropped her off and is running errands. Has been with primary care provider for 8 years or so. Later discussing long history of arthralgia. 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 She has struggled with arthralgia and other pain, muscle spasm apparently since a teenager. Related Data Home Medications ?Medication ?Instructions ?Recorded ?Confirmed acetaminophen 325 mg tablet 650 mg PO Q4-6H PRN 07/12/25 cholecalciferol (vitamin D3) 125 125 mcg PO QDAY 05/2507/12/25 mcg (5,000 unit) capsule ibuprofen 200 mg tablet 600 mg PO .Q6h Prn 05/25/22 07/12/25 Previous Rx's ?Medication ?Instructions ?Recorded clindamycin phosphate 1 % topical 1 applic topical BID PRN cyst #60 03/25/25 gel grams cyclobenzaprine 5 mg tablet 5 mg PO QHS PRN muscle spa sm #30 03/25/25 tabs gabapentin 300 mg capsule 900 - 1,200 mg (3 - 4 x 300 mg) PO 03/25/25 TID #900 caps omeprazole 40 mg capsule,delayed 40 mg PO QDAY #90 cap s 03/25/25 release oxycodone-acetaminophen 5 mg-325 2 tab PO QHS PRN pain #10 tabs 04/02/25 mg tablet hydrocodone 5 mg-acetaminophen 325 1 - 2 tab PO TID MO N pain #150 tabs 06/24/25 mg tablet oxycodone-acetaminophen 5 mg-325 1 - 2 tab PO Q4-6H MO N pain #10 07/12/25 mg tablet (Percocet) tabs prednisone 20 mg tablet 40 mg (2 x 20 mg) PO DAILY # 10 tabs 07/12/25 Allergies Allergy/AdvReac Type Severity Reaction Status Date / Time codeine AdvReac Intermediate Vomiting Verified 03/25/25 12:47 Review of Systems Status of ROS: Reports: 6 or more systems reviewed and unremarkable except as noted in History and below [facility] Medical History History of migraine ?Z86.69 - Personal history of other diseases of the nervous system and sense organs (ICD-10) History of malignant neoplasm of bladder ?Z85.51 - Personal history of malignant neoplasm of bladder (ICD-10) Encounter for well woman exam ?Z01.419 - Encounter for gynecological examination (general) (routine) without abnormal findings (ICD-10) Carpal tunnel syndrome of right wrist ?G56.01 - Carpal tunnel syndrome, right upper limb (ICD-10) Surgical History History of unilateral salpingectomy (2012) ?Z90.79 - Acquired absence of other genital organ(s) (ICD-10) History of hysteroscopy ?Z98.890 - Other specified postprocedural states (ICD-10) History of dilation and curettage ?Z98.890 - Other specified postprocedural states (ICD-10) History of cholecystectomy ?Z90.49 - Acquired absence of other specified parts of digestive tract (ICD- 10) History of section ?Z98.891 - History of uterine scar from previous surgery (ICD-10) History of cervical spinal arthrodesis (2015) ?Z98.1 - Arthrodesis status (ICD-10) History of carpal tunnel surgery of right wrist (05/2018) ?Z98.890 - Other specified postprocedural states (ICD-10) History of bladder surgery (2015) ?Z98.890 - Other specified postprocedural states (ICD-10) History of appendectomy ?Z90.49 - Acquired absence of other specified parts of digestive tract (ICD- 10) Family History Brother Bipolar disorder Mother Depression Anxiety Fibromyalgia Maternal Grandmother Depression Fibromyalgia Uncle Depression Aunt Fibromyalgia Other Diabetes Social History Narrative: , has fianc?e, 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[employer], 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 18 does not exercise social drinker- 4/week stress due to illness of family member tobacco abuse- 1/2 pack/day, 20 years What is your current living situation?: I presently have a place to live Problems where you live: declined to answer In the past 12 months, utilities in danger of being shut off: no In past 12 months, lack of transportation kept you from medical appts, meetings, work, or getting things needed for daily living: no In the past 12 mos, have been you worried that your food would run out before you had money to buy more?: never true In the past 12 mos, the food you bought just didn't last and you didn't have money to buy more?: never true Smoking Status: Current every day smoker Non-prescribed substance use: denies use How often does anyone, including family, friends and others, physically hurt you : decline to answer How often does anyone, including family, friends and others, insult or talk down to you: never How often does anyone, including family, friends and others, threaten you with harm: never How often does anyone, including family, friends and others, scream or curse at you: never service: No Exam Narrative: Exam Narrative: Pleasant. Clearly feels very uncomfortable. Transitioning slowly and apparently painfully, stiffly. Skin is warm and dry. Extremely tense to palpat ion over bilateral trapezius and paracervical musculature. Tender throughout this area. Does not demonstrate hypesthesia. Head is atraumatic. Cranial nerves 2-12 intact. Pupils are 3 mm and equal. I do not appreciate discrete joint erythema or swelling. She is also rather sore to palpation the left sacroiliac joint and along the greater trochanter of her left hip and ITB band on the left. Const: Vital Signs, click to edit/add: Vital Signs - 24 hr 07/12/25 11:25 07/12/25 13:30 07/12/25 13:45 Temperature 97.7 F Pulse Rate 76 79 Pulse Rate [Right Pulse Oximeter] 87 Respiratory Rate 18 Blood Pressure Blood Pressure [Ri ght Upper Arm] 159/96 H Pulse Oximetry 100 98 98 Oxygen Delivery Me thod Room Air 07/12/25 14:00 07/12/25 14:18 07/12/25 14:30 Temperature Pulse Rate 76 77 82 Pulse Rate [Right Pulse Oximeter] Respiratory Rate Blood Pressure Blood Pressure [Ri ght Upper Arm] Pulse Oximetry 100 100 98 Oxygen Delivery Me thod 07/12/25 14:51 07/12/25 14:53 Temperature Pulse Rate 80 80 Pulse Rate [Right Pulse Oximeter] Respiratory Rate Blood Pressure 149/98 H Blood Pressure [Ri ght Upper Arm] Pulse Oximetry 99 99 Oxygen Delivery Me thod Documenting provider has reviewed patient's vital signs: yes Course Vital Signs Vital signs: Initial Vital Signs Temperature 97.7 F 07/12/25 11:25 Temperature Source Temporal Artery Scan 07/12/25 11:25 Pulse Rate 87 07/12/25 11:25 Respiratory Rate 18 07/12/25 11:25 Blood Pressure 159/96 H 07/12/25 11:25 Blood Pressure Mean 117 H 07/12/25 11:25 Blood Pressure Position Sitting 07/12/25 11:25 Pulse Oximetry 100 07/12/25 11:25 Oxygen Delivery Method Room Air 07/12/25 11:25 Vital Signs Temperature 97.7 F 07/12/25 11:25 Pulse Rate 87 07/12/25 11:25 Respiratory Rate 18 07/12/25 11:25 Blood Pressure 159/96 H 07/12/25 11:25 Pulse Oximetry 100 07/12/25 11:25 Oxygen Delivery Method Room Air 07/12/25 11:25 Temperature 97.7 F 07/12/25 11:25 Pulse Rate 80 07/12/25 14:53 Respiratory Rate 18 07/12/25 11:25 Blood Pressure 149/98 H 07/12/25 14:53 Pulse Oximetry 99 07/12/25 14:53 Oxygen Delivery Method Room Air 07/12/25 11:25 Medications Administered Medications: Discontinued Medications Generic Name Dose Route Start Last Admin Trade Name Fiona PRN Reason Stop Dose Admin Bupivacaine HCl 10 ml 07/12/25 14:11 07/12/25 14:30 Bupivacaine 0.25% 30 Ml INJECTION 07/12/25 14:12 10 ml ONCE ONE Administration Dexamethasone 10 mg 07/12/25 11:37 07/12/25 12:47 Dexamethasone 10 Mg/Ml Pf IVP 07/12/25 11:38 10 mg ONCE ONE Administration Diazepam 5 mg 07/12/25 11:37 07/12/25 12:59 Diazepam 5 Mg/Ml Inj IV 07/12/25 11:38 5 mg ONCE ONE Administration Hydromorphone HCl 0.5 mg 07/12/25 11:37 07/12/25 13:00 Hydromorphone 0.5 Mg/0.5 Ml Inj IVP 07/12/25 11:38 0.5 mg ONCE ONE Administration Sodium Chloride 1,000 mls @ 1,000 mls/hr 07/12/25 11:37 07/12/25 13:50 0.9 % Sodium Chloride 1000 Ml IV 07/12/25 12:36 Infused .Q1H ONE Infusion Ketorolac Tromethamine 30 mg 07/12/25 11:37 07/12/25 12:51 Ketorolac 30 Mg/Ml Inj IVP 07/12/25 11:38 30 mg ONCE ONE Administration Medical Decision Making MDM Narrative Medical decision making narrative: I do believe that Penelope has pain. I would like to offer relief of her headache, neck pain. No particular red flags in that I do not think that this represents meningitis or head bleed. Consistent with likely tension headache. I did discuss checking for COVID though I think this is low yield in she did not feel is necessary. I would, given degree of tension and also appreciating headache, I think it would be helpful to break this quickly and a little more aggressively. I proposed IV fluids, Valium, dexamethasone, ketorolac, a dose of Dilaudid. I discover subsequently that it was actually she herself who had driven to the emergency department. I confront Penelope with this. Ultimately says she does not know why she said that. She is apologetic. She just is really not feeling well. She did say that her daughter is indeed running errands and could come get her maybe her could come get her or she could relinquish her car keys if necessary for potentially sedating treatment. Will initiate IV fluids ketorolac, dexamethasone. I am reaching out primary care provider to coordinate plan/treatment. To go further with treatment other than maybe localized intramuscular anesthetic injections. Did talk to primary care provider. Describes challenging, stressful social situation and difficulty with establishing cares at a pain clinic. Has not exhibited particularly concerning medication use behavior. Would support whate femi care seems appropriate. I proceeded with dosing Valium and Dilaudid as well. Also dispensed ice pack and soft collar. Quickly improved with regard to her headache and generally somewhat improved but on reassessment still with a great deal pain particularly in the right paracervical musculature but really in all areas as described. Agrees to go ahead with injections of bupivacaine in painfully tense musculature. Informed consent obtained. I returned to inject total 9 mL of 0.25% bupivacaine distributed over central trapezius bilaterally and mid bilateral paracervical spine musculature. There do not appear to be any complications. Tolerates this well. Shortly after this is reporting some further relief. Looks more relaxed. Improved movement. Discussed further focused stretches. Does have a history of massage and chiropractic cares. Physical therapy as well. I wonder if would benefit from further acupuncture and possibly another evaluation with rheumatology. arrives to provide transportation. See patient discharge plan for further discussion I am including a number of handouts for you to work at stretching your upper back. Also for your hip and low back. The hip seems to have some combination of greater trochanteric bursitis or iliotibial band syndrome. You also have pain in your sacral iliac joint. Prescribing you also temporary Percocet from [facility] along with a course of prednisone. Also with a little food can take your ibuprofen regularly over the next few days. Can discuss other options for ?muscle relaxers with your doctor. (I am sorry. Meds are out in [facility]) You might benefit from seeing rheumatology in the future. Can discuss with Dr. Bahena on follow-up on Tuesday please. Medical Records Medical records reviewed: Yes I reviewed the patient's medical records Discharge Plan Discharge Clinical Impression: Tension headache, Muscle tension pain, Radiculitis, Sacroiliac joint pain, Greater trochanteric bursitis Patient Disposition: Home w/ Parent or Adult Condition: Improved Additional Instructions: I am including a number of handouts for you to work at stretching your upper back. Also for your hip and low back. The hip seems to have some combination of greater trochanteric bursitis or iliotibial band syndrome. You also have pain in your sacral iliac joint. Prescribing you also temporary Percocet from [facility] along with a course of prednisone. Also with a little food can take your ibuprofen regularly over the next few days. Can discuss other options for ?muscle relaxers with your doctor. (I am sorry. Meds are out in [facility]) You might benefit from seeing rheumatology in the future. Can discuss with Dr. Bahena on follow-up on Tuesday please. Prescriptions: New prednisone 20 mg tablet 40 mg PO DAILY Qty: 10 0RF oxycodone-acetaminophen [Percocet] 5-325 mg tablet 1 - 2 tab PO Q4-6H PRN (Reason: pain) Qty: 10 0RF No Action ibuprofen 200 mg tablet 600 mg PO .Q6h Prn acetaminophen 325 mg tablet 650 mg PO Q4-6H PRN Rx Instructions: NO MORE THAN 4000 MG/DAY cholecalciferol (vitamin D3) 125 mcg (5,000 unit) capsule 125 mcg PO QDAY clindamycin phosphate 1 % gel 1 applic topical BID PRN (Reason: cyst) Qty: 60 12RF cyclobenzaprine 5 mg tablet 5 mg PO QHS PRN (Reason: muscle spasm) Qty: 30 5RF gabapentin 300 mg capsule 900 - 1,200 mg PO TID Qty: 900 3RF Rx Instructions: Take 900 mg in AM and afternoon, 1200 mg at bedtime. omeprazole 40 mg capsule,delayed release(DR/EC) 40 mg PO QDAY Qty: 90 3RF oxycodone-acetaminophen 5-325 mg tablet 2 tab PO QHS PRN (Reason: pain) Qty: 10 0RF hydrocodone-acetaminophen 5-325 mg tablet 1 - 2 tab PO TID PRN (Reason: pain) Qty: 150 0RF Rx Instructions: Maximum 5 tab/ 24h Follow Up/Referrals: Rasta Bahena MD [Primary Care Provider, Family Practice] Stand Alone Forms: [facility] Info Instructions
--- NOTE | 2025-07-12 11:55 | PC.NURSE ---
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
[2025-07-12] MEDS: DEXAMETHASONE 10 MG/ML PF IVP (12:47)
[2025-07-12] MEDS: diazePAM 5 MG/ML inj IV (12:59)
[2025-07-12] MEDS: BUPIVACAINE 0.25% 30 ML 10 ML INJECTION (14:30)
--- NOTE | 2025-07-12 15:10 | PC.NURSE ---
pt picked up by at this time, keys given to
== END 2025-07-12 15:10 | disposition home or self-care (01) ==
PROVIDERS: Emergency Provider Family Medicine; PCP Family Medicine
DX: G44.209 Tension-type headache, unspecified, not intractable (principal); M53.3 Sacrococcygeal disorders, not elsewhere classified; M70.62 Trochanteric bursitis, left hip
CPT/HCPCS: 96374; 96375; 99284; J0665; J1100; J1171; J1885; J3360; J7030